=== PATIENT | male | born 1945 | race Hispanic/Latino ===

== ENCOUNTER 2017-06-09 01:43 | Emergency (ER) | payer MEDICARE ==
--- NOTE | 2017-06-09 02:13 | C.PDOC ---
History Of Present Illness 72 y/o male presents to the ED for evaluation because he is concerned about "damaged what they did for me" yesterday. Patient has history of incontinence and states he may have self urinated on dressings again. Patient reports no new symptoms since his ER evaluation at [facility]. Patient has not yet filled his Rx for Augmentin. PS CONCERNED "DAMAGED WHAT THEY DID FOR ME" YESTERDAY. HO INCONTINENCE, STATES MAY HAVE SELF URINATED ON DRESSINGS AGAIN. NO NEW SX SINCE ER EVAL @ [facility]. HAS NOT FILLED AUGMENTIN RX. SP SALINE AND bacitracin applied to the dorsum of the feet and betadine applied to the interspace - Dressed using DSD SOLO bandage Patient placed in a surgical shoe Patient educated to keep the dressing dry, and clean Patient to be given a dose of Vanc/Zosyn while in the ED EXAM NAD EXT +DRESSINGS INTACT B/L FEET. SKIN DRESSINGS CHANGES, ADVISED FU PODIATRY Chief Complaint (Nursing): Lower Extremity Problem/Injury History Per: Patient History/Exam Limitations: no limitations Onset/Duration Of Symptoms: Hrs Current Symptoms Are (Timing): Still Present Reports Recently: Seen In ED, Treated By A Physician Additional History Per: Patient Past Medical History Reviewed: Historical Data, Nursing Documentation, Vital Signs Vital Signs: Last Vital Signs Temp 97.5 F L 06/09/17 01:56 Pulse 78 06/09/17 01:56 Resp 20 06/09/17 01:56 BP 154/82 H 06/09/17 01:56 Pulse Ox 98 06/09/17 02:31 - Medical History PMH: COPD Surgical History: No Surg Hx Family History: States: Unknown Family Hx - Social History Hx Alcohol Use: No Hx Substance Use: No Review Of Systems Skin: Positive for: Other (dressing change - b/l feet ) Physical Exam - Physical Exam Appears: Non-toxic, No Acute Distress Skin: Normal Color, Warm, Dry Head: Atraumatic, Normacephalic Eye(s): bilateral: Normal Inspection Oral Mucosa: Moist Neck: Supple Chest: Symmetrical Cardiovascular: Rhythm Regular Respiratory: Normal Breath Sounds Extremity: Normal ROM, Capillary Refill (less than 2 seconds), Other (dressings intact to b/l feet ) Neurological/Psych: Normal Speech, Normal Cognition ED Course And Treatment O2 Sat by Pulse Oximetry: 98 (on RA) Pulse Ox Interpretation: Normal Progress Note: Patient received Augmentin PO. Progress - Data Reviewed Data Reviewed: Old records Disposition Counseled Patient/Family Regarding: Diagnosis, Need For Followup - Disposition Referrals: [facility] [Outside] [facility] [Outside] Podiatry Clinic [Outside] Disposition: HOME/ ROUTINE Disposition Time: 02:12 Condition: IMPROVED Additional Instructions: TAKE ANTIBIOTICS PRESCRIBED. WOUND CARE PREVIOUSLY ADVISED. Instructions: Cellulitis (ED) Forms: [employer] (Bahamian) - Clinical Impression Clinical Impression: Dressing change - Scribe Statement The provider has reviewed the documentation as recorded by the Scribe (Lyndsay Jacques) Provider Attestation: All medical record entries made by the Scribe were at my direction and personally dictated by me. I have reviewed the chart and agree that the record accurately reflects my personal performance of the history, physical exam, medical decision making, and the department course for this patient. I have also personally directed, reviewed, and agree with the discharge instructions and disposition.
[2017-06-09] MEDS ORDERED: Amoxicillin-Clav 875-125 mg Tab PO STA (02:14)
[2017-06-09] MEDS ORDERED: Amoxicillin-Clav 875-125 mg Tab PO ONE (02:26)
[2017-06-09 02:44] VITALS: BP 138/69; PULSE 75; RESP 16; TEMP 97.7; O2SAT 97
== END 2017-06-09 02:43 | disposition home or self-care (01) ==
LOC: C.ER 01:43
DX: Z48.00 Encounter for change or removal of nonsurgical wound dressing (principal)

== ENCOUNTER 2017-06-12 14:53 | Emergency (ER) | payer MEDICARE ==
[2017-06-12 15:49] VITALS: O2SAT 96
[2017-06-12] MEDS ORDERED: Bacitracin 500 Units/gm Oint Foilpak UD TOP ONE (16:48)
[2017-06-12] MEDS ORDERED: Bacitracin 500 Units/gm Oint Foilpak UD ONE (16:51)
--- NOTE | 2017-06-12 17:02 | C.PDOC ---
History Of Present Illness 72 year old male, with history of homelessness, is brought to the ED via EMS for evaluation after he was found on the street [employer]. As per EMS, patient has urinated upon himself. Patient states he was seen at [facility] several days ago and had a dressing applied to his legs. On my assessment, patient is asking for food and a place to sleep. Patient denies any complaints at this time. Time Seen by Provider: 06/12/17 16:37 Chief Complaint (Nursing): Medical Clearance History Per: Patient, EMS History/Exam Limitations: no limitations Current Symptoms Are (Timing): Gone Additional History Per: Patient, EMS Past Medical History Reviewed: Historical Data, Nursing Documentation, Vital Signs Vital Signs: Last Vital Signs Temp 97.9 F 06/12/17 17:54 Pulse 72 06/12/17 17:54 Resp 20 06/12/17 17:54 BP 144/77 06/12/17 17:54 Pulse Ox 96 06/12/17 17:54 - Medical History PMH: COPD Surgical History: No Surg Hx Family History: States: Unknown Family Hx - Social History Hx Alcohol Use: No Hx Substance Use: No Review Of Systems Constitutional: Negative for: Fever, Chills Physical Exam - Physical Exam Appears: Non-toxic, No Acute Distress Skin: Warm, Dry, Other (no open lesions noted, interdigital maceration noted in all interspaces, nails are elongated and dystrophic on all digits, erythema to the dorsum of the foot bilaterally extending distal to the ankle joint) Head: Atraumatic, Normacephalic Eye(s): bilateral: Normal Inspection Oral Mucosa: Moist Neck: Supple Extremity: Capillary Refill (less than 2 seconds ), Other (no pain or tenderness on palpation of the dorum of the feet, no pain on active or passive ROM of the b/l feet at the ankle joint) Neurological/Psych: Other (protective sensation grossly intact) ED Course And Treatment O2 Sat by Pulse Oximetry: 96 (on RA) Pulse Ox Interpretation: Normal Medical Decision Making Medical Decision Making: Progress: dressings taken down, chronic appearing wounds, wounds were redressed. Bacitracin TOP applied to affected areas. Patient tolerated well. Disposition - Disposition Referrals: [facility] [Outside] [facility] [Outside] [facility]] Santy Felix DPM [Staff Provider] - Disposition: HOME/ ROUTINE Disposition Time: 05:00 Condition: STABLE Additional Instructions: please follow up with your doctor. return to er with worsening symptoms or concerns. please see specialist/clinic. Instructions: Chronic Wound Care (ED) Forms: [employer] (Romansh) - Clinical Impression Clinical Impression: Medical assessment, Dressing change - Scribe Statement The provider has reviewed the documentation as recorded by the Scribe (Lyndsay Jacques) Provider Attestation: All medical record entries made by the Scribe were at my direction and personally dictated by me. I have reviewed the chart and agree that the record accurately reflects my personal performance of the history, physical exam, medical decision making, and the department course for this patient. I have also personally directed, reviewed, and agree with the discharge instructions and disposition.
[2017-06-12 17:55] VITALS: BP 144/77; PULSE 72; RESP 20; TEMP 97.9
== END 2017-06-12 18:10 | disposition home or self-care (01) ==
LOC: C.ER 14:53
DX: Z48.00 Encounter for change or removal of nonsurgical wound dressing (principal)

== ENCOUNTER 2017-06-13 03:42 | Inpatient (IN) | payer MEDICARE ==
[2017-06-13 05:36] LABS: BASO % 0.5 % (0.0-2.0); EOS # 0.3 K/uL (0.0-0.7); EOS % 4.4 % (0.0-4.0); HEMATOCRIT 34.1 % (35.0-51.0); LYMPH # 2.4 K/uL (1.0-4.3); LYMPH % 32.7 % (20.0-40.0); MEAN CELL VOLUME 85.7 fL (80.0-94.0); MEAN CORPUSCULAR HEMOGLOBIN 29.8 pg (27.0-31.0); MEAN CORPUSCULAR HGB CONC 34.8 g/dL (33.0-37.0); MEAN PLATELET VOLUME 6.8 fL (7.2-11.7); MONO # 0.7 K/uL (0.0-0.8); MONO % 9.5 % (0.0-10.0); RED CELL DISTRIBUTION WIDTH 13.7 % (11.5-14.5); WHITE BLOOD COUNT 7.2 K/uL (4.8-10.8)
--- NOTE | 2017-06-13 05:41 | C.PDOC ---
History Of Present Illness 72 year old male presents to the ED 4 day history of cough which is associated with subjective fevers and bodyaches. The patient reports that over the past 2 days have worsened and he is now feeling weakness. The patient reports history of homelessness and is seeking information regarding [facility] alternatives. Denies numbness, chest pain, SOB, back pain, rash, travel, suicidal, or homicidal ideations. Time Seen by Provider: 06/13/17 04:09 Chief Complaint (Nursing): Flu-like Symptoms History Per: Patient History/Exam Limitations: no limitations Onset/Duration Of Symptoms: Persistent Current Symptoms Are (Timing): Worse Location Of Pain: None Sick Contacts (Context): None Associated Symptoms: denies: Fever, Chills, Sore Throat, Cough, Vomiting, Diarrhea Severity: Moderate Recent travel outside of the [place]: No Past Medical History Reviewed: Historical Data, Nursing Documentation, Vital Signs Vital Signs: Last Vital Signs Temp 98.5 F 06/13/17 03:59 Pulse 80 06/13/17 03:59 Resp 16 06/13/17 03:59 BP 155/71 H 06/13/17 03:59 Pulse Ox 98 06/13/17 06:05 - Medical History PMH: COPD Family History: States: Unknown Family Hx - Social History Hx Alcohol Use: No Hx Substance Use: No Review Of Systems Except As Marked, All Systems Reviewed And Found Negative. Constitutional: Negative for: Fever, Chills Cardiovascular: Negative for: Chest Pain, Palpitations Respiratory: Negative for: Cough, Shortness of Breath Gastrointestinal: Negative for: Nausea, Vomiting, Abdominal Pain, Diarrhea Neurological: Negative for: Headache Physical Exam - Physical Exam Appears: Non-toxic, No Acute Distress Skin: Warm, Dry, No Rash Head: Atraumatic, Normacephalic Eye(s): bilateral: Normal Inspection, PERRL, EOMI Ear(s): Bilateral: Normal Oral Mucosa: Moist Neck: Normal ROM, Supple Chest: Symmetrical, No Deformity Cardiovascular: Rhythm Regular, No Friction Rub, No Murmur Respiratory: Normal Breath Sounds, No Rales, No Rhonchi, No Wheezing Gastrointestinal/Abdominal: Soft, No Tenderness, No Distention, No Guarding, No Rebound Extremity: Normal ROM, No Tenderness, No Swelling Neurological/Psych: Oriented x3, Normal Speech, Normal Motor Gait: Steady ED Course And Treatment - Laboratory Results Result Diagrams: 06/13/17 05:30 06/13/17 05:30 ECG: Interpreted By Me, Viewed By Me ECG Rhythm: Sinus Bradycardia Rate From EC O2 Sat by Pulse Oximetry: 98 (room air ) - Radiology CXR: Interpreted by Me, Viewed By Me CXR Interpretation: Yes: Infiltrates Progress Note: EKG, CXR, and labs were ordered. Medical Decision Making Medical Decision Making: The case was discussed with Dr. Qureshi who agrees to admit the patient to his service. Potassium was found to be low, potassium given. Disposition - Disposition Disposition: HOSPITALIZED Disposition Time: 06:27 Condition: FAIR Forms: [employer] (Czech) - POA Present On Arrival: None - Clinical Impression Clinical Impression: Hypokalemia, Pneumonia - PA / FOOD PORTER / Resident Statement MD/DO has reviewed & agrees with the documentation as recorded. - Scribe Statement The provider has reviewed the documentation as recorded by the Scribe Elaine Neal All medical record entries made by the Scribe were at my direction and personally dictated by me. I have reviewed the chart and agree that the record accurately reflects my personal performance of the history, physical exam, medical decision making, and the department course for this patient. I have also personally directed, reviewed, and agree with the discharge instructions and disposition.
[2017-06-13 05:42] LABS: URINE BACTERIA RARE (<OCC); URINE BILIRUBIN NEGATIVE (NEGATIVE); URINE BLOOD NEGATIVE (NEGATIVE); URINE COLOR Yellow (YELLOW); URINE GLUCOSE (UA) 1+ mg/dL (Normal); URINE KETONE NEGATIVE (NEGATIVE); URINE LEUKOCYTE ESTERASE NEG Leu/uL (Negative); URINE PROTEIN 1+ mg/dL (NEGATIVE); WBC URINE 1 /hpf (0-5)
[2017-06-13 05:45] LABS: CHLORIDE 102 mmol/L (98-107); POTASSIUM 3.1 mmol/L (3.6-5.2); SODIUM 142 mmol/L (132-148)
[2017-06-13 05:47] LABS: ALKALINE PHOSPHATASE 55 U/L (38-126); AST/SGOT 17 U/L (17-59); BILIRUBIN,TOTAL 0.6 mg/dL (0.2-1.3); CARBON DIOXIDE 27 mmol/L (22-30); GFR AFRICAN-AMERICAN > 60; TOTAL PROTEIN 6.4 g/dL (6.3-8.3)
[2017-06-13 05:48] LABS: ALT/SGPT 24 U/L (21-72); BLOOD UREA NITROGEN 7 mg/dL (9-20); CALCIUM 8.8 mg/dl (8.6-10.4); GLUCOSE,RANDOM 204 mg/dL (75-110)
[2017-06-13] MEDS ORDERED: cefTRIAXone IV 1 gm in Dextros 50 ML IVPB ONE (06:24)
[2017-06-13] MEDS ORDERED: cefTRIAXone IV 1 gm in Dextros 1 GM in Dextrose 5% In Water 50 ML IVPB SCH (06:30)
--- NOTE | 2017-06-13 08:08 | RAD ---
HISTORY: cough, fever, r/o infiltrate COMPARISON: No prior. FINDINGS: LUNGS: Left basal opacity consistent with combine left pleural effusion of basal consolidation and minimally elevated left hemidiaphragm are inferred. Shallow lung volumes PLEURA: Left pleural effusion. No pneumothorax CARDIOVASCULAR: Mild cardiomegaly - crowding of the central pulmonary vasculature OSSEOUS STRUCTURES: Acromioclavicular joint arthrosis VISUALIZED UPPER ABDOMEN: Normal. OTHER FINDINGS: None. IMPRESSION: Left basal consolidation with with atelectasis. Left pleural effusion shallow lung volumes Mild cardiomegaly
[2017-06-13 08:51] VITALS: RESP 20
[2017-06-13] MEDS: Albuterol-Ipratrop 3 mg / 0.5 (3 ml) UD INH SCH ×4 (09:05→19:28)
--- NOTE | 2017-06-13 10:40 | CP.PCM.PN ---
Subjective - Date & Time of Evaluation Date of Evaluation: 06/13/17 Time of Evaluation: 11:00 - Subjective Subjective: Dr. Qureshi progress note: Patient is seen in room. He reports being homeless and having fever and chills prior to admission to the hospital. He says that he was also coughing as well. He denies having any chest pain but that he has been to [facility] before. Objective - Vital Signs/Intake and Output Vital Signs (last 24 hours): Temp Pulse Resp BP Pulse Ox 97.4 F L 68 20 178/76 H 97 06/13/17 08:49 06/13/17 09:06 06/13/17 08:49 06/13/17 08:49 06/13/17 08:49 - Medications Medications: Current Medications Acetaminophen (Tylenol 325mg Tab) 650 mg PO Q4 ANTWAN Albuterol/Ipratropium (Duoneb 3 Mg/0.5 Mg (3 Ml) Ud) 3 ml INH RQ4 ANTWAN Last Admin: 06/13/17 09:05 Dose: 3 ml Enoxaparin Sodium (Lovenox) 40 mg SC DAILY ANTWAN Azithromycin (Zithromax 500mg In Ns Addvantage) 500 mg in 250 mls @ 167 mls/hr IVPB Q24H ANTWAN Ceftriaxone Sodium (Rocephin Iv 1 Gm Duplex) 50 mls @ 50 mls/30 min IVPB Q12H ANTWAN - Labs Labs: 06/13/17 05:30 06/13/17 05:30 - Constitutional Appears: Non-toxic, No Acute Distress - Eye Exam Eye Exam: Normal appearance - Respiratory Exam Respiratory Exam: Decreased Breath Sounds, Rales, Rhonchi. absent: Clear to Ausculation Bilateral, Wheezes - Cardiovascular Exam Cardiovascular Exam: REGULAR RHYTHM, RRR, +S1, +S2. absent: Gallop, Rubs - GI/Abdominal Exam GI & Abdominal Exam: Soft, Normal Bowel Sounds. absent: Tenderness - Extremities Exam Extremities Exam: Normal Inspection. absent: Pedal Edema - Psychiatric Exam Psychiatric exam: Normal Affect, Normal Mood - Skin Skin Exam: Normal Color Additional comments: weeping sores on both lower extremities. Assessment and Plan (1) Pneumonia Assessment & Plan: Patient is on Zithromax 500mg IVPB. Rocephin 1 gram Q12H day 1. Duoneb q6H. Status: Acute (2) Hypokalemia Assessment & Plan: K is 3.1, gave 40 meq of potassium. follow up am cmp Status: Acute (3) Cellulitis of both feet Assessment & Plan: Podiatry consult Dr. Gibson, follow up on reccs. Status: Acute (4) Prophylactic measure Assessment & Plan: Lovenox and pepcid Status: Acute
[2017-06-13] MEDS ORDERED: Potassium Chloride 20 mEq ER Tab PO STA (10:58)
[2017-06-13] MEDS: Azithromycin 500mg/250ML NS 500 MG/250 ML BAG IVPB SCH (11:13)
[2017-06-13] MEDS: Enoxaparin 40 mg Syringe SC SCH (11:14)
[2017-06-13] MEDS: cefTRIAXone IV 1 gm in Dextros 50 ML IVPB SCH (19:00)
--- NOTE | 2017-06-13 19:28 | CP.PCM.PN ---
Subjective - Date & Time of Evaluation Date of Evaluation: 06/14/17 Time of Evaluation: 20:00 - Subjective Subjective: 72 year old male with PMH of HTN and anxiety consulted for multiple lesions of bilaterally lower extremity. Patient is resting comfortably in bed in NAD and AA0x3. Patient states the wounds on his legs started 4 weeks ago. He reports being homeless and recently evicted. He reports having cough, fevers, and bodyaches that comes and goes. Reports tenderness to the legs but no pain. Denies cp, chills, fever, nausea, and vomiting at the time of the visit. Allergies: NKDA PSH: none FH: noncontributory SH: former smoker 20 year 3 pack a day; former alcohol abuse, former marijuana, and former cocaine user Objective - Vital Signs/Intake and Output Vital Signs (last 24 hours): Temp Pulse Resp BP Pulse Ox 98 F 81 20 174/85 H 96 06/13/17 15:05 06/13/17 17:02 06/13/17 15:05 06/13/17 17:02 06/13/17 17:02 Intake and Output: 06/13/17 06/14/17 18:59 06:59 Output Total 400 Balance -400 - Medications Medications: Current Medications Acetaminophen (Tylenol 325mg Tab) 650 mg PO Q4 PRN PRN Reason: Fever >100.4 F Albuterol/Ipratropium (Duoneb 3 Mg/0.5 Mg (3 Ml) Ud) 3 ml INH RQ4 [facility] Last Admin: 06/13/17 16:14 Dose: Not Given Enoxaparin Sodium (Lovenox) 40 mg SC DAILY [facility] Last Admin: 06/13/17 11:14 Dose: 40 mg Famotidine (Pepcid) 20 mg PO DAILY [facility] Azithromycin (Zithromax 500mg In Ns Addvantage) 500 mg in 250 mls @ 167 mls/hr IVPB Q24H [facility] Last Admin: 06/13/17 11:13 Dose: 167 mls/hr Ceftriaxone Sodium (Rocephin Iv 1 Gm Duplex) 50 mls @ 50 mls/30 min IVPB Q12H [facility] Influenza Virus Vaccine (Afluria) 45 mcg IM .ONCE ONE Stop: 06/15/17 10:01 Pneumococcal Polyvalent Vaccine (Pneumovax 23 Vaccine) 0.5 ml IM .ONCE ONE Stop: 06/15/17 10:01 - Labs Labs: 06/13/17 05:30 06/13/17 05:30 - Constitutional Appears: Well, Non-toxic, No Acute Distress - Extremities Exam Additional comments: Vasc: DP and PT 1/4 bilaterally, temperature warm to warm from proximal to distal, CFT <3 seconds x10 digits, hair growth appreciated Ortho: tenderness noted to the entire lower extremity where lesions are present , MM is 5/5 in all four compartments in dorsiflexion, plantarflexion, inversion , and eversion Neuro: gross sensation intact bilaterally Derm: superficial distal ulceration noted to the left hallux measuring approximately .5 x.5 x .1 cm, no drainage, no purulence, no increase warmth, no tunneling, not undermining noted. Multiple lesions noted to the entire lower extremity red in nature with scaly borders. xerosis noted to the entire lower extremity, no active drainage noted to the lesions, slight maceration noted to the interdigitals x10 with no skin breakage noted - Neurological Exam Neurological Exam: Alert, Awake, Oriented x3 - Psychiatric Exam Psychiatric exam: Normal Affect, Normal Mood Assessment and Plan - Assessment and Plan (Free Text) Assessment: 72 year old male with PMH of HTN anxiety consulted for multiple lesions to LE consistent with bug bites and left distal hallux superficial ulceration secondary to pressure Plan: Patient was examined and evaluated at bedside Vitals, labs, charts reviewed (WBC=7.2) Discussed plan in detail with attending Dr. Gibson Entire lower extremity was cleansed with wound cleanser, copious amount of saline solution flushed over entire LE and hyperkeratotic, scaly tissue removed mechanically using 4x4 gauze, betadine was used to cleansed to the interspaces and distal hallux ulceraion. Ulceration was dressed with betadine w2d, cling, and SOLO. Kerlix applied to right LE with SOLO. Continue Abx Ancef Will continue to follow while in house
[2017-06-14] MEDS: Albuterol-Ipratrop 3 mg / 0.5 (3 ml) UD INH SCH ×4 (00:55→11:28)
[2017-06-14] MEDS: cefTRIAXone IV 1 gm in Dextros 50 ML IVPB SCH ×2 (06:15→19:37)
[2017-06-14 07:26] LABS: BASO % 0.2 % (0.0-2.0); EOS # 0.3 K/uL (0.0-0.7); EOS % 3.3 % (0.0-4.0); HEMATOCRIT 33.3 % (35.0-51.0); LYMPH # 1.8 K/uL (1.0-4.3); LYMPH % 21.6 % (20.0-40.0); MEAN CELL VOLUME 85.6 fL (80.0-94.0); MEAN CORPUSCULAR HEMOGLOBIN 29.5 pg (27.0-31.0); MEAN CORPUSCULAR HGB CONC 34.5 g/dL (33.0-37.0); MEAN PLATELET VOLUME 7.1 fL (7.2-11.7); MONO # 0.8 K/uL (0.0-0.8); MONO % 9.2 % (0.0-10.0); RED CELL DISTRIBUTION WIDTH 13.6 % (11.5-14.5); WHITE BLOOD COUNT 8.5 K/uL (4.8-10.8)
--- NOTE | 2017-06-14 07:32 | CP.PCM.PN ---
Subjective - Date & Time of Evaluation Date of Evaluation: 06/14/17 Time of Evaluation: 11:00 - Subjective Subjective: Dr. Qureshi note: Patient is seen and examined in room. Patient reports he is still coughing but is feeling better since admission. He is afraid to be discharged because he is weak and homeless. Patient has sores on his legs that he says have there for a long time and they are not pruritic Objective - Vital Signs/Intake and Output Vital Signs (last 24 hours): Temp Pulse Resp BP Pulse Ox 98.2 F 93 H 20 185/76 H 95 06/13/17 23:30 06/13/17 23:30 06/13/17 23:30 06/13/17 23:30 06/13/17 23:30 Intake and Output: 06/14/17 06/14/17 06:59 18:59 Intake Total 250 Output Total 350 Balance -100 - Medications Medications: Current Medications Acetaminophen (Tylenol 325mg Tab) 650 mg PO Q4 PRN PRN Reason: Fever >100.4 F Albuterol/Ipratropium (Duoneb 3 Mg/0.5 Mg (3 Ml) Ud) 3 ml INH RQ4 ANTWAN Last Admin: 06/14/17 03:52 Dose: Not Given Enoxaparin Sodium (Lovenox) 40 mg SC DAILY ANTWAN Last Admin: 06/13/17 11:14 Dose: 40 mg Famotidine (Pepcid) 20 mg PO DAILY ANTWAN Azithromycin (Zithromax 500mg In Ns Addvantage) 500 mg in 250 mls @ 167 mls/hr IVPB Q24H ANTWAN Last Admin: 06/13/17 11:13 Dose: 167 mls/hr Ceftriaxone Sodium (Rocephin Iv 1 Gm Duplex) 50 mls @ 50 mls/30 min IVPB Q12H ANTWAN Last Admin: 06/14/17 06:15 Dose: 50 mls/30 min Influenza Virus Vaccine (Afluria) 45 mcg IM .ONCE ONE Stop: 06/15/17 10:01 Pneumococcal Polyvalent Vaccine (Pneumovax 23 Vaccine) 0.5 ml IM .ONCE ONE Stop: 06/15/17 10:01 - Labs Labs: 06/14/17 07:15 06/13/17 05:30 - Constitutional Appears: Non-toxic, No Acute Distress - Eye Exam Eye Exam: Normal appearance - Respiratory Exam Respiratory Exam: Clear to Ausculation Bilateral. absent: Rales, Rhonchi, Wheezes - Cardiovascular Exam Cardiovascular Exam: REGULAR RHYTHM, RRR, +S1, +S2. absent: Gallop, Rubs - GI/Abdominal Exam GI & Abdominal Exam: Soft, Normal Bowel Sounds. absent: Tenderness - Extremities Exam Extremities Exam: Normal Inspection - Back Exam Back Exam: NORMAL INSPECTION - Psychiatric Exam Psychiatric exam: Normal Affect, Normal Mood - Skin Additional comments: multiple scabs on his legs, skin is very dry and flaky, dressing on both feet. Assessment and Plan - Assessment and Plan (Free Text) Assessment: (1) Pneumonia Assessment & Plan: 06/15: Day 2 of IV Rocephin and Day 3 of Zithromax IV, also continue Duoneb treatment. Rocephin and Zithromax with Duoneb Patient is on Zithromax 500mg IVPB. Rocephin 1 gram Q12H day 1. Duoneb q6H. Status: Acute (2) Hypokalemia Assessment & Plan: 06/14: K is today 3.5, gave 20meq of KDUR K is 3.1, gave 40 meq of potassium. follow up am cmp Status: Acute (3) Cellulitis of both feet Assessment & Plan: 06/14: Wound care and podiatry, will continue with IV antibiotics and also physical therapy. Most likely discharge in the morning. Status: Acute (4) Prophylactic measure Assessment & Plan: Lovenox and pepcid Status: Acute
[2017-06-14 07:38] LABS: CHLORIDE 103 mmol/L (98-107); POTASSIUM 3.5 mmol/L (3.6-5.2); SODIUM 142 mmol/L (132-148)
[2017-06-14 07:40] LABS: AST/SGOT 19 U/L (17-59); BILIRUBIN,TOTAL 0.8 mg/dL (0.2-1.3); CARBON DIOXIDE 26 mmol/L (22-30); GFR AFRICAN-AMERICAN > 60
[2017-06-14 07:41] LABS: ALKALINE PHOSPHATASE 52 U/L (38-126); ALT/SGPT 25 U/L (21-72); BLOOD UREA NITROGEN 5 mg/dL (9-20); CALCIUM 8.5 mg/dl (8.6-10.4); GLUCOSE,RANDOM 132 mg/dL (75-110); MAGNESIUM 1.6 mg/dL (1.6-2.3); PHOSPHOROUS 2.7 mg/dL (2.5-4.5); TOTAL PROTEIN 6.3 g/dL (6.3-8.3)
[2017-06-14] MEDS: Azithromycin 500mg/250ML NS 500 MG/250 ML BAG IVPB SCH (08:38)
[2017-06-14] MEDS ORDERED: Potassium Chloride 20 mEq ER Tab PO STA (09:23)
--- NOTE | 2017-06-14 09:57 | HP ---
HISTORY OF PRESENT ILLNESS: The patient is a 72-year-old male, admitted to the hospital with leg pain, swelling. The patient ____ CAT scan, advised admission. The patient is nonsmoker, nondrinker. The patient ____ . PHYSICAL EXAMINATION: GENERAL: The patient is awake, alert, and oriented. VITAL SIGNS: Temperature 98 and pulse 90. HEENT: Within normal limits. NECK: Supple. CHEST: Symmetrical. HEART: Regular. ABDOMEN: Soft. EXTREMITIES: No edema. PLAN: The patient with colon mass. The patient will have colonoscopy. Supportive care. Reynold Qureshi MD
--- NOTE | 2017-06-14 10:03 | HP ---
HISTORY OF PRESENT ILLNESS: A 72-year-old male admitted to the hospital with complaint of cough, shortness of breath ____. PAST MEDICAL HISTORY: ____ juvenile 20 years ago, he's been reform since. SOCIAL HISTORY: The patient does not smoke or drink. PHYSICAL EXAMINATION GENERAL: The patient is awake, alert, and oriented. VITAL SIGNS: Temperature 98, pulse 90. HEENT: Within normal limits. NECK: Supple. CHEST: Symmetrical. HEART: Regular. ABDOMEN: Soft. EXTREMITIES: No edema. IMPRESSION: The patient has pneumonia . The patient on bed rest, supportive care and antibiotics. Reynold Qureshi MD
[2017-06-14] MEDS: Enoxaparin 40 mg Syringe SC SCH (10:05)
--- NOTE | 2017-06-14 14:21 | CP.PCM.PN ---
Subjective - Date & Time of Evaluation Date of Evaluation: 06/14/17 Time of Evaluation: 12:00 - Subjective Subjective: Podiatry Progress Note --Dr. Felix: 72 year old male pt seen at bedside today for b/l LE ulcerations/cellulitis. Pt is seen resting comfortably in bed at time of visit. Denies f/n/v/c/cob/cp/ weakness or dizziness at this time. Denies any pain/discomfort to his legs today. Objective - Vital Signs/Intake and Output Vital Signs (last 24 hours): Temp Pulse Resp BP Pulse Ox 98.1 F 70 20 150/71 95 06/14/17 08:09 06/14/17 08:09 06/14/17 08:09 06/14/17 08:09 06/14/17 08:09 Intake and Output: 06/14/17 06/14/17 06:59 18:59 Intake Total 250 Output Total 350 Balance -100 - Medications Medications: Current Medications Acetaminophen (Tylenol 325mg Tab) 650 mg PO Q4 PRN PRN Reason: Fever >100.4 F Albuterol/Ipratropium (Duoneb 3 Mg/0.5 Mg (3 Ml) Ud) 3 ml INH RQ4 [facility] Last Admin: 06/14/17 11:28 Dose: 3 ml Enoxaparin Sodium (Lovenox) 40 mg SC DAILY [facility] Last Admin: 06/14/17 10:05 Dose: 40 mg Famotidine (Pepcid) 20 mg PO DAILY [facility] Last Admin: 06/14/17 10:05 Dose: 20 mg Azithromycin (Zithromax 500mg In Ns Addvantage) 500 mg in 250 mls @ 167 mls/hr IVPB Q24H [facility] Last Admin: 06/14/17 08:38 Dose: 167 mls/hr Ceftriaxone Sodium (Rocephin Iv 1 Gm Duplex) 50 mls @ 50 mls/30 min IVPB Q12H [facility] Last Admin: 06/14/17 06:15 Dose: 50 mls/30 min Influenza Virus Vaccine (Afluria) 45 mcg IM .ONCE ONE Stop: 06/15/17 10:01 Pneumococcal Polyvalent Vaccine (Pneumovax 23 Vaccine) 0.5 ml IM .ONCE ONE Stop: 06/15/17 10:01 - Labs Labs: 06/14/17 07:15 06/14/17 07:15 - Constitutional Appears: Non-toxic, No Acute Distress - Extremities Exam Extremities Exam: absent: Calf Tenderness Additional comments: Bilateral LE exam: Dressings appear c/d/i BL Vasc: DP and PT 1/4 BL, skin temp runs warm to warm bl, CFT <3 seconds x10 digit , moderate 2+ pitting edema noted to BL Neuro: gross sensation intact bilaterally Derm: superficial distal ulceration noted to the left hallux measuring approximately 0.5 x0.5 x 0.1 cm, no drainage, no purulence, no increase warmth, no tunneling, not undermining noted. Multiple lesions noted to the entire lower extremity red in nature with scaly borders. xerosis noted to the entire lower extremity, no active drainage noted to the lesions, slight maceration noted to the interdigitals x10 with no skin breakage noted Ortho: tenderness noted to the entire lower extremity where lesions are present , MMT is 5/5 in all four compartments in dorsiflexion, plantarflexion, inversion , and eversion - Neurological Exam Neurological Exam: Alert, Awake, Oriented x3 - Psychiatric Exam Psychiatric exam: Normal Affect, Normal Mood Assessment and Plan - Assessment and Plan (Free Text) Assessment: 72 year old male pt with ulceration/cellulitis to bilateral LE Plan: Pt S&E at bedside Plan discussed with attending Dr. Gibson in detail Vitals, labs, charts reviewed: afebrile, no leukocytosis BL lower ext cleansed with saline and dressed with betadine/DSD and SOLO bandages Blood cx: no growth after 24 h c/w IV abx as per ID Stable, will follow
[2017-06-15] MEDS: Albuterol-Ipratrop 3 mg / 0.5 (3 ml) UD INH SCH ×6 (01:15→20:12)
[2017-06-15] MEDS: cefTRIAXone IV 1 gm in Dextros 50 ML IVPB SCH ×2 (06:10→18:26)
[2017-06-15 06:37] LABS: BASO % 0.3 % (0.0-2.0); EOS # 0.2 K/uL (0.0-0.7); HEMATOCRIT 33.1 % (35.0-51.0); LYMPH % 23.8 % (20.0-40.0); MEAN CELL VOLUME 84.9 fL (80.0-94.0); MEAN CORPUSCULAR HEMOGLOBIN 29.2 pg (27.0-31.0); MEAN CORPUSCULAR HGB CONC 34.4 g/dL (33.0-37.0); MEAN PLATELET VOLUME 6.9 fL (7.2-11.7); MONO # 0.9 K/uL (0.0-0.8); MONO % 10.5 % (0.0-10.0); RED CELL DISTRIBUTION WIDTH 13.4 % (11.5-14.5); WHITE BLOOD COUNT 8.3 K/uL (4.8-10.8)
[2017-06-15 07:03] LABS: ALB/GLOB RATIO 1.1 (1.0-2.1); ALKALINE PHOSPHATASE 53 U/L (38-126); ALT/SGPT 24 U/L (21-72); AST/SGOT 17 U/L (17-59); BILIRUBIN,TOTAL 0.9 mg/dL (0.2-1.3); BLOOD UREA NITROGEN 8 mg/dL (9-20); CALCIUM 8.8 mg/dl (8.6-10.4); CARBON DIOXIDE 25 mmol/L (22-30); CHLORIDE 102 mmol/L (98-107); GFR AFRICAN-AMERICAN > 60; GLUCOSE,RANDOM 162 mg/dL (75-110); POTASSIUM 3.7 mmol/L (3.6-5.2); SODIUM 138 mmol/L (132-148); TOTAL PROTEIN 6.1 g/dL (6.3-8.3)
[2017-06-15] MEDS: Azithromycin 500mg/250ML NS 500 MG/250 ML BAG IVPB SCH (08:19)
--- NOTE | 2017-06-15 09:26 | CP.PCM.PN ---
Subjective - Date & Time of Evaluation Date of Evaluation: 06/15/17 Time of Evaluation: 09:23 - Subjective Subjective: Pt seen and examined at bedside this AM; he has no complaints other than if he' s possibly discharged he has no where to go since he is homeless. Patient denies fevers/chills, RUSSELL, CP, SOB, abdominal pain, N/V/D, dysuria/freq/urg or lower extremity swelling or pain. Objective - Vital Signs/Intake and Output Vital Signs (last 24 hours): Temp Pulse Resp BP Pulse Ox 98.3 F 81 20 166/75 H 97 06/15/17 08:13 06/15/17 08:13 06/15/17 08:13 06/15/17 08:13 06/15/17 08:13 Intake and Output: 06/15/17 06/15/17 06:59 18:59 Intake Total 850 Output Total 1150 Balance -300 - Medications Medications: Current Medications Acetaminophen (Tylenol 325mg Tab) 650 mg PO Q4 PRN PRN Reason: Fever >100.4 F Albuterol/Ipratropium (Duoneb 3 Mg/0.5 Mg (3 Ml) Ud) 3 ml INH RQ4 [facility] Last Admin: 06/15/17 07:39 Dose: Not Given Enoxaparin Sodium (Lovenox) 40 mg SC DAILY [facility] Last Admin: 06/14/17 10:05 Dose: 40 mg Famotidine (Pepcid) 20 mg PO DAILY [facility] Last Admin: 06/14/17 10:05 Dose: 20 mg Hydrochlorothiazide (Microzide) 12.5 mg PO DAILY [facility] Azithromycin (Zithromax 500mg In Ns Addvantage) 500 mg in 250 mls @ 167 mls/hr IVPB Q24H [facility] Last Admin: 06/15/17 08:19 Dose: 167 mls/hr Ceftriaxone Sodium (Rocephin Iv 1 Gm Duplex) 50 mls @ 50 mls/30 min IVPB Q12H [facility] Last Admin: 06/15/17 06:10 Dose: 50 mls/30 min Influenza Virus Vaccine (Afluria) 45 mcg IM .ONCE ONE Stop: 06/15/17 10:01 Insulin Aspart (Novolog) 0 unit SC ACHS [facility] PRN Reason: Protocol Lisinopril (Zestril) 10 mg PO DAILY [facility] Pneumococcal Polyvalent Vaccine (Pneumovax 23 Vaccine) 0.5 ml IM .ONCE ONE Stop: 06/15/17 10:01 - Labs Labs: 06/15/17 06:23 06/15/17 06:23 - Constitutional Appears: Non-toxic - Head Exam Head Exam: ATRAUMATIC - Eye Exam Eye Exam: EOMI - ENT Exam ENT Exam: Mucous Membranes Moist - Neck Exam Neck Exam: Full ROM. absent: Lymphadenopathy - Respiratory Exam Respiratory Exam: Clear to Ausculation Bilateral - Cardiovascular Exam Cardiovascular Exam: REGULAR RHYTHM - GI/Abdominal Exam GI & Abdominal Exam: Soft, Normal Bowel Sounds - Extremities Exam Extremities Exam: absent: Calf Tenderness Additional comments: feet b/l redness; improved from yesterday - Neurological Exam Neurological Exam: Alert, Awake - Psychiatric Exam Psychiatric exam: Normal Affect - Skin Skin Exam: Warm Assessment and Plan - Assessment and Plan (Free Text) Assessment: 72yo homeless male admitted for CAP PNA and Cellulitis of both feet Pneumonia 06/16: Day 3 of IV rocephin and Zithromax; patient has had stable vital signs, is up and out of bed, and eating normally. No fevers, No WBC or uremia. 06/15: Day 2 of IV Rocephin and Day 3 of Zithromax IV, also continue Duoneb treatment. Rocephin and Zithromax Duoneb q6H. Hypokalemia; resolved 06/15: K is 3.7 today 06/14: K is today 3.5, gave 20meq of KDUR Cellulitis of both feet; resolving 06/15: Cellulitis is improving; day 3 of antibiotics 06/14: Wound care and podiatry, will continue with IV antibiotics and also physical therapy. Most likely discharge in the morning. Homelessness -case management will work on getting the patient placed into a retirement -PT is recommending [facility]; pending placement and home O2 Prophylactic measure Lovenox and pepcid Heart Healthy Diet Dr. Trevor Arevalo PGY2 note for Dr. Qureshi
[2017-06-15] MEDS ORDERED: Influenza Virus Vaccine (Afluria Inactive dont use ) IM ONE (10:00)
[2017-06-15] MEDS ORDERED: Pneumococcal 23-Valent Vaccine IM ONE (10:00)
[2017-06-15] MEDS: Enoxaparin 40 mg Syringe SC SCH (11:00)
[2017-06-15] MEDS: (Novolog) Insulin Aspart, Recombinant 100 u/ml 10 ml vial SC SCH ×2 (12:28→18:23)
[2017-06-15 16:44] VITALS: TEMP 97.8
[2017-06-16] MEDS: (Novolog) Insulin Aspart, Recombinant 100 u/ml 10 ml vial SC SCH (00:05)
[2017-06-16 00:11] VITALS: BP 157/66; PULSE 76; O2SAT 97
[2017-06-16] MEDS ORDERED: Azithromycin 500 MG in Sodium Chloride 0.9% 250 ML IVPB SCH (08:00)
== END 2017-06-15 23:55 | disposition home or self-care (01) | DRG 194 ==
LOC: C.ER 03:42 → C.9E 06:14 → C.3T 06:41
PROVIDERS: ADMIT Internal Medicine Pulmonary Disease; ATTEND Internal Medicine Pulmonary Disease
DX: J18.9 Pneumonia, unspecified organism (principal); J44.0 Chronic obstructive pulmonary disease with (acute) lower respiratory infection; L03.115 Cellulitis of right lower limb; E11.9 Type 2 diabetes mellitus without complications; L03.116 Cellulitis of left lower limb; E87.6 Hypokalemia; I10 Essential (primary) hypertension; Z59.0 Homelessness; Z87.891 Personal history of nicotine dependence; Z79.4 Long term (current) use of insulin

== ENCOUNTER 2017-08-29 01:09 | Emergency (ER) | payer MEDICARE ==
[2017-08-29 02:09] VITALS: TEMP 99.1; O2SAT 94
--- NOTE | 2017-08-29 03:18 | C.PDOC ---
History Of Present Illness 72 year old male presents to the ER with a complaint of back pain after he fell out of his walker earlier today on the street and landed on his back. Denies weakness, numbness, or incontinence. Patient states he is no longer in pain at this time but is requesting a place to rest for a while. Patient was seen on 08/21/17 for dizziness and admitted from 06/13/17 to for cellulitis of the bilateral feet and community acquired pneumonia. Time Seen by Provider: 08/29/17 01:29 Chief Complaint (Nursing): Back Pain History Per: Patient History/Exam Limitations: no limitations Onset/Duration Of Symptoms: Hrs Current Symptoms Are (Timing): Gone Quality Of Discomfort: Unable To Describe Previous Symptoms: None Associated Symptoms: None Exacerbating Factor(s): Nothing Recent travel outside of the [place]: No Past Medical History Reviewed: Historical Data, Nursing Documentation, Vital Signs Vital Signs: Last Vital Signs Temp 99.1 F 08/29/17 06:05 Pulse 72 08/29/17 06:05 Resp 18 08/29/17 06:05 BP 126/53 L 08/29/17 06:05 Pulse Ox 94 L 08/29/17 06:05 - Medical History PMH: COPD, Diabetes, Rheumatoid Arthritis Surgical History: Tonsillectomy Family History: States: Unknown Family Hx - Social History Hx Alcohol Use: No Hx Substance Use: No - Immunization History Hx Tetanus Toxoid Vaccination: No Hx Influenza Vaccination: No Hx Pneumococcal Vaccination: No Review Of Systems Cardiovascular: Negative for: Chest Pain, Palpitations Respiratory: Negative for: Shortness of Breath Gastrointestinal: Negative for: Abdominal Pain Genitourinary: Negative for: Incontinence Musculoskeletal: Positive for: Back Pain Neurological: Negative for: Weakness, Numbness Physical Exam - Physical Exam Appears: Non-toxic, No Acute Distress Skin: Normal Color, Warm, Dry Head: Atraumatic, Normacephalic Eye(s): bilateral: Normal Inspection Oral Mucosa: Moist Chest: Symmetrical, No Tenderness Cardiovascular: Rhythm Regular Respiratory: Normal Breath Sounds, No Rales, No Rhonchi, No Wheezing Gastrointestinal/Abdominal: Soft, No Tenderness Back: No Vertebral Tenderness, No Paraspinal Tenderness Neurological/Psych: Oriented x3, Normal Speech, Normal Motor, Normal Sensation ED Course And Treatment O2 Sat by Pulse Oximetry: 94 (Room air) Pulse Ox Interpretation: Normal Disposition Counseled Patient/Family Regarding: Diagnosis - Disposition Disposition: HOME/ ROUTINE Disposition Time: 07:16 Condition: STABLE Forms: [employer] (Upper Sorbian) - Clinical Impression Clinical Impression: Low back pain - Scribe Statement The provider has reviewed the documentation as recorded by the Scribe Jovi Brock
[2017-08-29 06:06] VITALS: BP 126/53; PULSE 72; RESP 18
== END 2017-08-29 06:20 | disposition home or self-care (01) ==
LOC: C.ER 01:09
DX: M54.5 Low back pain (principal)

== ENCOUNTER 2017-10-13 03:56 | Emergency (ER) | payer MEDICARE ==
[2017-10-13 03:58] VITALS: BMI 38.4
[2017-10-13 04:12] VITALS: BP 142/79; TEMP 97.5; O2SAT 97
--- NOTE | 2017-10-13 04:17 | C.PDOC ---
Time Seen by Provider: 10/13/17 04:17 Chief Complaint (Nursing): Dizziness/Lightheaded Past Medical History Vital Signs: Last Vital Signs Temp 97.5 F L 10/13/17 04:07 Pulse 80 10/13/17 04:07 Resp 14 10/13/17 04:07 BP 142/79 10/13/17 04:07 Pulse Ox 97 10/13/17 04:07 - Medical History PMH: COPD, Diabetes, Rheumatoid Arthritis Surgical History: Tonsillectomy Family History: States: Unknown Family Hx - Social History Hx Alcohol Use: No Hx Substance Use: No - Immunization History Hx Tetanus Toxoid Vaccination: No Hx Influenza Vaccination: No Hx Pneumococcal Vaccination: No ED Course And Treatment O2 Sat by Pulse Oximetry: 97 Disposition Counseled Patient/Family Regarding: Studies Performed, Diagnosis - Disposition Disposition Time: 04:17
--- NOTE | 2017-10-13 04:45 | C.PDOC ---
History Of Present Illness Patient brought in by EMS after he was found loitering in front of a [employer]. Patient is homeless, initially he stated he was dizzy but now denies dizziness as well as other complaints at this time. Time Seen by Provider: 10/13/17 04:17 Chief Complaint (Nursing): Dizziness/Lightheaded History Per: Patient History/Exam Limitations: no limitations Onset/Duration Of Symptoms: Hrs Current Symptoms Are (Timing): Still Present Severity: None Pain Scale Rating Of: 0 Recent travel outside of the [place]: No Past Medical History Reviewed: Historical Data, Nursing Documentation, Vital Signs Vital Signs: Last Vital Signs Temp 97.5 F L 10/13/17 04:07 Pulse 80 10/13/17 04:07 Resp 14 10/13/17 04:07 BP 142/79 10/13/17 04:07 Pulse Ox 97 10/13/17 05:23 - Medical History PMH: COPD, Diabetes, Rheumatoid Arthritis Surgical History: Tonsillectomy Family History: States: No Known Family Hx - Social History Hx Alcohol Use: No Hx Substance Use: No - Immunization History Hx Tetanus Toxoid Vaccination: No Hx Influenza Vaccination: No Hx Pneumococcal Vaccination: No Review Of Systems Constitutional: Negative for: Fever, Chills Cardiovascular: Negative for: Chest Pain Respiratory: Negative for: Shortness of Breath Gastrointestinal: Negative for: Nausea, Vomiting Neurological: Negative for: Dizziness Physical Exam - Physical Exam Appears: Non-toxic, Other (Slightly disheveled) Skin: Warm, Dry Head: Normacephalic Oral Mucosa: Moist Chest: Symmetrical, No Tenderness Cardiovascular: Rhythm Regular Respiratory: No Rales, No Rhonchi, No Wheezing Gastrointestinal/Abdominal: Soft, No Tenderness Extremity: Pedal Edema, Other (Poor chronic vascular skin changes to lower extremities) Neurological/Psych: Oriented x3 Gait: With Assistance (Walker) ED Course And Treatment O2 Sat by Pulse Oximetry: 97 (Room air) Pulse Ox Interpretation: Normal Disposition Counseled Patient/Family Regarding: Studies Performed, Diagnosis - Disposition Disposition Time: 04:45 Condition: FAIR Forms: [facility] (Azeri) - Clinical Impression Clinical Impression: Encounter for medical assessment - Scribe Statement The provider has reviewed the documentation as recorded by the Scribe Jovi Brock All medical record entries made by the Scribe were at my direction and personally dictated by me. I have reviewed the chart and agree that the record accurately reflects my personal performance of the history, physical exam, medical decision making, and the department course for this patient. I have also personally directed, reviewed, and agree with the discharge instructions and disposition. Physician Patient Turnover Patient Signed Over To: Nolvia Corado Handoff Comments: re-eval and disposition
[2017-10-13 07:13] VITALS: PULSE 79; RESP 19
== END 2017-10-13 06:30 | disposition home or self-care (01) ==
LOC: C.ER 03:56
DX: Z00.00 Encounter for general adult medical examination without abnormal findings (principal); Z59.0 Homelessness

== ENCOUNTER 2017-10-14 03:44 | Emergency (ER) | payer MEDICARE ==
[2017-10-14 03:46] VITALS: BMI 38.4
[2017-10-14 04:37] VITALS: O2SAT 95
--- NOTE | 2017-10-14 05:11 | C.PDOC ---
History Of Present Illness Patient is a 72 y/o male who presents to the ED stating he is homeless and needs a place to stay. Patient denies any fever or chills. No other physical complaints at this time. Time Seen by Provider: 10/14/17 05:00 Chief Complaint (Nursing): Medical Clearance History Per: Patient History/Exam Limitations: no limitations Current Symptoms Are (Timing): Gone Severity: None Recent travel outside of the [place]: No Past Medical History Reviewed: Historical Data, Nursing Documentation, Vital Signs Vital Signs: Last Vital Signs Temp 98.6 F 10/14/17 04:35 Pulse 68 10/14/17 04:35 Resp 16 10/14/17 04:35 BP 164/81 H 10/14/17 04:35 Pulse Ox 95 10/14/17 05:12 - Medical History PMH: COPD, Diabetes, Pneumonia (a year ago), Rheumatoid Arthritis Surgical History: Tonsillectomy Family History: States: No Known Family Hx - Social History Hx Tobacco Use: Yes (former smoker) Hx Alcohol Use: No Hx Substance Use: No - Immunization History Hx Tetanus Toxoid Vaccination: No Hx Influenza Vaccination: No Hx Pneumococcal Vaccination: No Review Of Systems Constitutional: Negative for: Fever, Chills Cardiovascular: Negative for: Chest Pain Respiratory: Negative for: Shortness of Breath Gastrointestinal: Negative for: Abdominal Pain Physical Exam - Physical Exam Appears: Non-toxic, No Acute Distress Skin: Warm, Dry Head: Normacephalic Eye(s): bilateral: Normal Inspection Oral Mucosa: Moist Chest: Symmetrical Cardiovascular: Rhythm Regular Respiratory: No Rales, No Rhonchi, No Wheezing Gastrointestinal/Abdominal: Soft, No Tenderness Extremity: Pedal Edema (trace pedal edema, not new) Neurological/Psych: Oriented x3, Normal Speech Gait: With Assistance (with walker) ED Course And Treatment O2 Sat by Pulse Oximetry: 95 Pulse Ox Interpretation: Normal Progress Note: Patient is under ED obs until am. list of homeless shelters given Reevaluation Time: 06:16 Reassessment Condition: Improved Disposition Counseled Patient/Family Regarding: Diagnosis, Need For Followup - Disposition Referrals: [facility] [Outside] Disposition: HOME/ ROUTINE Disposition Time: 06:17 Condition: FAIR Forms: [facility] (Bulgarian), General Discharge Instructions - Clinical Impression Clinical Impression: Encounter for medical assessment - Scribe Statement The provider has reviewed the documentation as recorded by the Rizwanibchris Edwards All medical record entries made by the Darya were at my direction and personally dictated by me. I have reviewed the chart and agree that the record accurately reflects my personal performance of the history, physical exam, medical decision making, and the department course for this patient. I have also personally directed, reviewed, and agree with the discharge instructions and disposition.
[2017-10-14 06:53] VITALS: BP 148/78; PULSE 72; RESP 20; TEMP 98.2
== END 2017-10-14 06:51 | disposition home or self-care (01) ==
LOC: C.ER 03:44
DX: Z76.89 Persons encountering health services in other specified circumstances (principal); Z59.0 Homelessness; M06.9 Rheumatoid arthritis, unspecified; E11.9 Type 2 diabetes mellitus without complications; J44.9 Chronic obstructive pulmonary disease, unspecified; Z87.891 Personal history of nicotine dependence

== ENCOUNTER 2017-10-26 15:58 | Inpatient (IN) | payer MEDICARE ==
[2017-10-26 15:58] VITALS: BMI 38.4
[2017-10-26 19:50] LABS: BASO % 0.5 % (0.0-2.0); EOS # 0.5 K/uL (0.0-0.7); HEMOGLOBIN 10.8 g/dL (12.0-18.0); LYMPH # 2.6 K/uL (1.0-4.3); LYMPH % 26.9 % (20.0-40.0); MEAN CORPUSCULAR HEMOGLOBIN 27.4 pg (27.0-31.0); MEAN CORPUSCULAR HGB CONC 32.8 g/dL (33.0-37.0); MONO # 1.4 K/uL (0.0-0.8); NEUT % 52.6 % (50.0-75.0); NRBC % 0.2 % (0.0-2.0); RBC 3.94 Mil/uL (4.40-5.90); RED CELL DISTRIBUTION WIDTH 13.7 % (11.5-14.5); WHITE BLOOD COUNT 9.6 K/uL (4.8-10.8)
[2017-10-26 19:53] LABS: MEAN CELL VOLUME 83.4 fL (80.0-94.0)
[2017-10-26 20:05] LABS: ALB/GLOB RATIO 1.1 (1.0-2.1); ALBUMIN 4.1 g/dL (3.5-5.0); ALT/SGPT 27 U/L (21-72); AST/SGOT 23 U/L (17-59); BLOOD UREA NITROGEN 36 mg/dL (9-20); CALCIUM 9.2 mg/dl (8.6-10.4); GFR AFRICAN-AMERICAN > 60; GFR NON-AFRICAN AMERICAN > 60
--- NOTE | 2017-10-26 20:29 | CT ---
EXAM: CT Head Without Intravenous Contrast CLINICAL HISTORY: 72 years old, male; Condition or disease; Headache; Headache not specified TECHNIQUE: Axial computed tomography images of the head/brain without intravenous contrast. All CT scans at this facility use one or more dose reduction techniques, viz.: automated exposure control; ma/kV adjustment per patient size (including targeted exams where dose is matched to indication; i.e. head); or iterative reconstruction technique. COMPARISON: No relevant prior studies available. FINDINGS: Brain: [id number] atrophy. No intracranial hemorrhage. No mass. Minimal decreased attenuation within periventricular white matter. Probable chronic lacunar infarct about RIGHT basal ganglia. Probable chronic lacunar infarct within right cerebellum. No definite edema. Ventricles: No hydrocephalus. Bones/joints: No acute fracture. Soft tissues: Unremarkable. Vasculature: Mild atherosclerotic disease of intracranial arteries. Sinuses: Scattered mild mucosal thickening. Few large maxillary retention cysts. Mastoid air cells: Partial opacification of mastoids. Orbits: Unremarkable as visualized. IMPRESSION: 1. Nonspecific white matter changes. Acute infarction may be CT occult within first 24 hours. If a focal deficit persists, consider followup CT or MRI for further evaluation. 2. Sinus disease. 3. Mastoid disease. 4. Incidental/non-acute findings are described above.
--- NOTE | 2017-10-26 20:30 | C.PDOC ---
History Of Present Illness 72 year old male presents to the ED for evaluation after suffering a syncopal episode while at [employer] earlier today. Patient is complaining of lightheadedness and dizziness. He denies any pain at this time. Chief Complaint (Nursing): Weakness/Neurological Deficit History Per: Patient History/Exam Limitations: no limitations Onset/Duration Of Symptoms: Hrs Current Symptoms Are (Timing): Still Present Activity At Onset Of Symptoms: Standing Associated Symptoms Preceding Syncopal Episode: No Predromal Symptoms (Sudden Onset), Lightheadedness Additional History Per: Patient Past Medical History Reviewed: Historical Data, Nursing Documentation, Vital Signs Vital Signs: Last Vital Signs Temp 97.9 F 10/26/17 16:33 Pulse 80 10/26/17 16:33 Resp 20 10/26/17 16:33 BP 149/83 10/26/17 16:33 Pulse Ox 98 10/26/17 21:32 - Medical History PMH: COPD, Diabetes, Pneumonia (a year ago), Rheumatoid Arthritis Surgical History: Tonsillectomy Family History: States: Unknown Family Hx - Social History Hx Tobacco Use: Yes (former smoker) Hx Alcohol Use: No Hx Substance Use: No - Immunization History Hx Tetanus Toxoid Vaccination: No Hx Influenza Vaccination: No Hx Pneumococcal Vaccination: No Review Of Systems Neurological: Positive for: Dizziness, Other (lightheadedness, s/p syncopal episode ) Physical Exam - Physical Exam Appears: Non-toxic, No Acute Distress Skin: Normal Color, Warm, Dry Head: Atraumatic, Normacephalic Eye(s): bilateral: Normal Inspection Oral Mucosa: Moist Neck: Supple Chest: Symmetrical, No Deformity, No Tenderness Cardiovascular: Rhythm Regular, No Murmur Respiratory: Normal Breath Sounds, No Rales, No Rhonchi, No Wheezing Extremity: Normal ROM, Capillary Refill (less than 2 seconds ) Neurological/Psych: Oriented x3, Normal Speech, Normal Cognition, Other (awake, alert, conscious. no focal deficits ) Gait: Steady ED Course And Treatment - Laboratory Results Result Diagrams: 10/26/17 19:47 10/26/17 19:47 ECG: Interpreted By Me, Viewed By Me ECG Rhythm: Sinus Rhythm ECG Interpretation: No Acute Changes, Abnormal Interpretation Of ECG: NSR, left axis deviation, abnormal tracings Rate From EC O2 Sat by Pulse Oximetry: 98 (on RA) Pulse Ox Interpretation: Normal - CT Scan/US CT Head Other Rad Studies (CT/US): Interpreted By Me, Read By Radiologist, Radiology Report Reviewed CT/US Interpretation: EXAM: CT Head Without Intravenous Contrast. CLINICAL HISTORY: 72 years old, male; Condition or disease; Headache; Headache not specified. TECHNIQUE: Axial computed tomography images of the head/brain without intravenous contrast. All CT scans at. this facility use one or more dose reduction techniques, viz.: automated exposure control; ma/kV. adjustment per patient size (including targeted exams where dose is matched to indication; i.e. head);. or iterative reconstruction technique. COMPARISON: No relevant prior studies available. FINDINGS: Brain: Brri-mi-[id number] atrophy. No intracranial hemorrhage. No mass. Minimal decreased. attenuation within periventricular white matter. Probable chronic lacunar infarct about RIGHT basal. ganglia. Probable chronic lacunar infarct within right cerebellum. No definite edema. Ventricles: No hydrocephalus. Bones/joints: No acute fracture. Soft tissues: Unremarkable. Vasculature: Mild atherosclerotic disease of intracranial arteries. Sinuses: Scattered mild mucosal thickening. Few large maxillary retention cysts. Mastoid air cells: Partial opacification of mastoids. Orbits: Unremarkable as visualized. IMPRESSION: 1. Nonspecific white matter changes. Acute infarction may be CT occult within first 24 hours. If a. focal deficit persists, consider followup CT or MRI for further evaluation. 2. Sinus disease. 3. Mastoid disease. 4. Incidental/non-acute findings are described above. Progress Note: Bloodwork, CT Head and EKG ordered and reviewed. NIHSS Stroke Scale 2 - Date/Time Evaluation Performed Date Performed: 10/26/17 When Was NIHSS Performed: Baseline - How Severe is the Stroke Level of Consciousness: 0=Alert LOC to Questions: 0=Both comments correct LOC to commands: 0=Obeys both correctly Visual: 0=No visual loss Facial: 0=Normal Motor Arm - Left: 0=No drift Motor Arm - Right: 0=No drift Motor Leg - Left: 0=No drift Motor Leg - Right: 0=No drift Limb Ataxia: 0=Absent Sensory: 0=Normal Best Language: 0=No aphasia Dysarthia: 0=Normal articulation Extinction & Inattention (Neglect): 0=Normal, no object Disposition Discussed With DrRhoda: Larry Espino Jr. Doctor Will See Patient In The: Hospital Counseled Patient/Family Regarding: Diagnosis - Disposition Disposition: HOSPITALIZED Disposition Time: 21:32 Condition: STABLE - POA Present On Arrival: None - Clinical Impression Clinical Impression: Syncope - Scribe Statement The provider has reviewed the documentation as recorded by the Scribe (Lyndsay Jacques) Provider Attestation: All medical record entries made by the Scribe were at my direction and personally dictated by me. I have reviewed the chart and agree that the record accurately reflects my personal performance of the history, physical exam, medical decision making, and the department course for this patient. I have also personally directed, reviewed, and agree with the discharge instructions and disposition.
[2017-10-26] MEDS ORDERED: Sodium Chloride 0.9% 1,000 ML IV ONE (20:47)
[2017-10-26] MEDS ORDERED: Sodium Chloride 0.9% 1,000 ML ONE (20:54)
[2017-10-26 21:14] LABS: URINE BILIRUBIN NEGATIVE (NEGATIVE); URINE BLOOD NEGATIVE (NEGATIVE); URINE CLARITY Clear (Clear); URINE COLOR Yellow (YELLOW); URINE GLUCOSE (UA) 1+ mg/dL (Normal); URINE LEUKOCYTE ESTERASE NEG Leu/uL (Negative); URINE NITRATE NEGATIVE (NEGATIVE); URINE PROTEIN 1+ mg/dL (NEGATIVE); URINE UROBILINOGEN NORMAL mg/dL (0.2-1.0)
[2017-10-26 21:28] LABS: BARBITURATES, UR NEGATIVE (NEGATIVE); BENZODIAZEPINES, UR NEGATIVE (NEGATIVE); OPIATES, UR NEGATIVE (NEGATIVE); PHENCYCLIDINE, UR NEGATIVE (NEGATIVE)
--- NOTE | 2017-10-26 22:20 | CP.PCM.HP ---
History of Present Illness - History of Present Illness History of Present Illness: This is a 74 year old male with a hx of DM and HTN. He is homeless and is a poor historian, offering little scope into his medical history. He states that just this morning he was seen at [facility] and "tests" were done there, everything was "normal" and he was discharge. He is presenting with a 5 week hx of syncopal episodes. He states that happen at random, are not provoked by anything in particular, they are seconds in length, he does lose consciousness and he regains his consciousness without any intervention. His most recent fall was this morning at [facility]. He states that it was about a 5 second duration in which he lost consciousness. He does not know is he hit his head. He denies any chest pain, shortness of breath, recent illness, nausea , vomiting, diarrhea, constipation, and focal weakness/numbness/tingling. He states that in the past he was given scripts for diabetic and anti-hypertensive medications but he has never gotten these scripts filled. He denies any form of substance abuse, alcohol, and smoking. PMhx: diabetes, HTN Pshx: tonsillectomy Meds: none Allergies: NKDA Familyhx: unknown Socialhx: homeless, denies alcohol/tobacco(currently)/drugs; he is a former smoker Present on Admission - Present on Admission Any Indicators Present on Admission: No Review of Systems - Constitutional Constitutional: absent: Chills, Fever, Weight Loss, Weakness - EENT Eyes: absent: Blind Spots, Blurred Vision, Loss of Vision Nose/Mouth/Throat: absent: Nasal Congestion, Nasal Discharge - Cardiovascular Cardiovascular: Syncope. absent: Chest Pain, Diaphoresis, Dyspnea - Respiratory Respiratory: absent: Cough, Dyspnea, Wheezing - Gastrointestinal Gastrointestinal: absent: Abdominal Pain, Constipation, Diarrhea, Nausea, Vomiting - Genitourinary Genitourinary: absent: Dysuria - Musculoskeletal Musculoskeletal: absent: Muscle Weakness, Numbness, Tingling - Integumentary Additional comments: chronic skin changes on b/l lower extremities - Neurological Neurological: Dizziness, Syncope. absent: Numbness, Focal Weakness, Headaches, Tingling, Other Visual Disturbances Past Patient History - Infectious Disease Hx of Infectious Diseases: None - Past Medical History & Family History Past Medical History?: Yes - Past Social History Smoking Status: Former Smoker - PULMONARY Hx Chronic Obstructive Pulmonary Disease (COPD): Yes Hx Pneumonia: Yes (a year ago) - ENDOCRINE/METABOLIC Hx Diabetes Mellitus Type 1: Yes - MUSCULOSKELETAL/RHEUMATOLOGICAL Hx Rheumatoid Arthritis: Yes - PSYCHIATRIC Hx Substance Use: No - SURGICAL HISTORY Hx Tonsillectomy: Yes - ANESTHESIA Hx Anesthesia: Yes Hx Anesthesia Reactions: No Meds Allergies/Adverse Reactions: Allergies Allergy/AdvReac Type Severity Reaction Status Date / Time No Known Allergies Allergy Verified 10/26/17 16:36 Physical Exam - Constitutional Appears: No Acute Distress, Unkempt - Head Exam Head Exam: ATRAUMATIC, NORMOCEPHALIC - Eye Exam Eye Exam: EOMI, PERRL - ENT Exam ENT Exam: Mucous Membranes Moist - Respiratory Exam Respiratory Exam: Clear to Auscultation Bilateral, NORMAL BREATHING PATTERN. absent: Rales, Rhonchi, Wheezes - Cardiovascular Exam Cardiovascular Exam: REGULAR RHYTHM, +S1, +S2 - GI/Abdominal Exam GI & Abdominal Exam: Soft. absent: Distended, Guarding, Tenderness - Extremities Exam Extremities exam: Positive for: pedal edema (+1). Negative for: calf tenderness Additional comments: extensive chronic skin changes on the lower extremities bilaterally with multiple cuts/scrapes/scabs - Neurological Exam Neurological exam: Alert, CN II-XII Intact, Oriented x3 - Psychiatric Exam Psychiatric exam: Normal Affect, Normal Mood - Skin Skin Exam: Dry, Warm Results - Vital Signs Recent Vital Signs: Last Vital Signs Temp 97.9 F 10/26/17 16:33 Pulse 80 10/26/17 16:33 Resp 20 10/26/17 16:33 BP 149/83 10/26/17 16:33 Pulse Ox 98 10/26/17 21:32 - Labs Result Diagrams: 10/26/17 19:47 10/26/17 19:47 Labs: Laboratory Results - last 24 hr 10/26/17 10/26/17 10/26/17 19:47 19:47 20:04 WBC 9.6 RBC 3.94 L Hgb 10.8 L Hct 32.9 L MCV 83.4 D MCH 27.4 MCHC 32.8 L RDW 13.7 Plt Count 286 MPV 7.0 L Neut % (Auto) 52.6 Lymph % (Auto) 26.9 [place] % (Auto) 15.0 H Eos % (Auto) 5.0 H Baso % (Auto) 0.5 Neut # (Auto) 5.0 Lymph # (Auto) 2.6 [place] # (Auto) 1.4 H Eos # (Auto) 0.5 Baso # (Auto) 0.0 Sodium 136 Potassium 4.7 Chloride 98 Carbon Dioxide 27 Anion Gap 16 BUN 36 H Creatinine 1.1 Est GFR ( Amer) > 60 Est GFR (Non-Af Amer) > 60 POC Glucose (mg/dL) 139 H Random Glucose 136 H Calcium 9.2 Total Bilirubin 0.9 AST 23 ALT 27 Alkaline Phosphatase 60 Troponin I < 0.0120 Total Protein 8.0 Albumin 4.1 Globulin 3.9 Albumin/Globulin Ratio 1.1 Lipase Urine Color Urine Clarity Urine pH Ur Specific [place] Urine Protein Urine Glucose (UA) Urine Ketones Urine Blood Urine Nitrate Urine Bilirubin Urine Urobilinogen Ur Leukocyte Esterase Urine WBC (Auto) Urine RBC (Auto) Urine Opiates Screen Urine Methadone Screen Ur Barbiturates Screen Ur Phencyclidine Scrn Ur Amphetamines Screen U Benzodiazepines Scrn U Oth Cocaine Metabols U Cannabinoids Screen 10/26/17 10/26/17 10/26/17 21:02 21:02 21:02 WBC RBC Hgb Hct MCV MCH MCHC RDW Plt Count MPV Neut % (Auto) Lymph % (Auto) [place] % (Auto) Eos % (Auto) Baso % (Auto) Neut # (Auto) Lymph # (Auto) [place] # (Auto) Eos # (Auto) Baso # (Auto) Sodium Potassium Chloride Carbon Dioxide Anion Gap BUN Creatinine Est GFR ( Amer) Est GFR (Non-Af Amer) POC Glucose (mg/dL) Random Glucose Calcium Total Bilirubin AST ALT Alkaline Phosphatase Troponin I Total Protein Albumin Globulin Albumin/Globulin Ratio Lipase 208 Urine Color Yellow Urine Clarity Clear Urine pH 5.0 Ur Specific [place] 1.015 Urine Protein 1+ H Urine Glucose (UA) 1+ H Urine Ketones Negative Urine Blood Negative Urine Nitrate Negative Urine Bilirubin Negative Urine Urobilinogen Normal Ur Leukocyte Esterase Neg Urine WBC (Auto) 1 Urine RBC (Auto) < 1 Urine Opiates Screen Negative Urine Methadone Screen Negative Ur Barbiturates Screen Negative Ur Phencyclidine Scrn Negative Ur Amphetamines Screen Negative U Benzodiazepines Scrn Negative U Oth Cocaine Metabols Negative U Cannabinoids Screen Negative Assessment & Plan - Assessment and Plan (Free Text) Plan: Syncope Admission to Tele CT head done in ED- negative for acute changes; consider repeat CT/MRI if focal deficits present/further concerns UA on admission +1 glucose and protein WBC on admission 9.6 UDS negative First Trop negative- follow up MALIK's x2 Follow up carotid doppler Follow up Echo Follow up orthostatics Follow up UCX Follow up EKG Anemia hemoglobin 10.8 on admission Follow up Iron/TIBC/Ferritin/Folate/B12 Follow up stool occult blood HTN Start lisinopril 5mg PO daily, crestor 10mg PO qhs DM ISS Blood sugar ACHS hypoglycemia protocol Start lisinopril 5mg PO daily, crestor 10mg PO qhs PPX Protonix 40mg PO daily Lovenox 30mg SC q12 Diabetic-heart healthy diet Case discussed with Dr. Srinivas Schneider D.O.
[2017-10-27 06:18] LABS: BASO % 0.4 % (0.0-2.0); EOS # 0.4 K/uL (0.0-0.7); EOS % 5.8 % (0.0-4.0); HEMOGLOBIN 10.2 g/dL (12.0-18.0); LYMPH # 2.4 K/uL (1.0-4.3); LYMPH % 31.6 % (20.0-40.0); MEAN CELL VOLUME 83.6 fL (80.0-94.0); MEAN CORPUSCULAR HEMOGLOBIN 27.9 pg (27.0-31.0); MEAN CORPUSCULAR HGB CONC 33.3 g/dL (33.0-37.0); MEAN PLATELET VOLUME 7.2 fL (7.2-11.7); MONO # 0.9 K/uL (0.0-0.8); MONO % 11.6 % (0.0-10.0); NEUT # 3.8 K/uL (1.8-7.0); NEUT % 50.6 % (50.0-75.0); RBC 3.65 Mil/uL (4.40-5.90); RED CELL DISTRIBUTION WIDTH 13.9 % (11.5-14.5); WHITE BLOOD COUNT 7.5 K/uL (4.8-10.8)
[2017-10-27 07:37] LABS: AST/SGOT 18 U/L (17-59)
[2017-10-27 07:38] LABS: ALBUMIN 3.5 g/dL (3.5-5.0); ALT/SGPT 25 U/L (21-72); BLOOD UREA NITROGEN 26 mg/dL (9-20); CALCIUM 8.8 mg/dl (8.6-10.4); GFR AFRICAN-AMERICAN > 60; GFR NON-AFRICAN AMERICAN > 60; HDL CHOLESTEROL 24 mg/dL (30-70)
[2017-10-27 07:47] LABS: LDL CHOLESTEROL 54 mg/dL (0-129)
[2017-10-27] MEDS: (Novolog) Insulin Aspart, Recombinant 100 u/ml 10 ml vial SC SCH ×4 (07:54→21:36)
[2017-10-27 08:39] LABS: FOLATE 7.4 ng/mL
[2017-10-27] MEDS: Enoxaparin 30 mg Syringe SC SCH ×2 (09:34→21:51)
[2017-10-27] MEDS: Pantoprazole 40 mg EC Tab PO SCH (09:34)
--- NOTE | 2017-10-27 12:55 | VASCLAB ---
PROCEDURE: HISTORY: syncope COMPARISON: None available. TECHNIQUE: Grayscale and duplex Doppler evaluation of the cervical carotid and vertebral arteries were performed. The common carotid, carotid bifurcations and cervical Internal Carotid Artery (ICA) and proximal External Carotid Artery (ECA) were evaluated. The vertebral arteries were evaluated for gross patency and flow direction. Report prepared by Jovi Smith, BS, RVT FINDINGS: RIGHT CAROTID ARTERIES: 1. Common Carotid Artery: No significant focal plaque formation of the right common carotid artery. Maximum Peak Systolic velocity: 85 cm/sec: End-diastolic velocity 12 cm/sec. 2. Carotid Bifurcation: Homogeneous plaque formation. Maximum Peak Systolic velocity: 80 cm/sec: End-diastolic velocity 17 cm/sec. 3. Internal Carotid Artery: Plaque description: 3.1. Proximal Segment: Peak systolic velocity 77 cm/sec: End-diastolic velocity 19 cm/sec - % stenosis 0-15% 3.2. Middle Segment: Peak systolic velocity 51 cm/sec: End-diastolic velocity 19 cm/sec - % stenosis 0-15% 3.3. Distal Segment: Peak systolic velocity 76 cm/sec: End-diastolic velocity 23 cm/sec - % stenosis 0-15% 4. External Carotid Artery: No significant focal plaque formation. Peak systolic velocity 58 cm/sec 5. ICA/CCA Ratio: 0.9 LEFT CAROTID ARTERIES: 1. Common Carotid Artery: Moderate plaque formation of the left proximal and distal CCA which results in hemodynamically significant stenosis. Maximum Peak Systolic velocity: 267 cm/sec: End-diastolic velocity 30 cm/sec. 2. Carotid Bifurcation: plaque formation. Maximum Peak Systolic velocity: 173 cm/sec: End-diastolic velocity 18 cm/sec. 3. Internal Carotid Artery: Plaque description: 3.1. Proximal Segment: Peak systolic velocity 130 cm/sec: End-diastolic velocity 30 cm/sec - % stenosis 0-15% 3.2. Middle Segment: Peak systolic velocity 53 cm/sec: End-diastolic velocity 20 cm/sec - % stenosis 0-15% 3.3. Distal Segment: Peak systolic velocity 58 cm/sec: End-diastolic velocity 20 cm/sec - % stenosis 0-15% 4. External Carotid Artery: No significant focal plaque formation. Peak systolic velocity 105 cm/sec 5. ICA/CCA Ratio: 0.6 VERTEBRAL ARTERIES: 1. Right Vertebral Artery: The right vertebral artery flow direction is antegrade. 2. Left Vertebral Artery: The left vertebral artery flow direction is antegrade. OTHER FINDINGS: 1. Right Brachial Blood pressure: 110 mmHg. 2. Left Brachial Blood pressure: 112 mmHg. IMPRESSION: RIGHT: Duplex scan does not suggest hemodynamically significant stenosis of the right extracranial carotid arteries. LEFT: Duplex scan does not suggest hemodynamically significant stenosis of the left extracranial carotid arteries.
--- NOTE | 2017-10-27 18:26 | CP.PCM.PN ---
Subjective - Date & Time of Evaluation Date of Evaluation: 10/27/17 Time of Evaluation: 18:23 - Subjective Subjective: Medicine progress note for Dr. Espino's service Patient was seen and examined at bedside in no acute distress. Patient has no complaints at this time, but says he feels dizzy, nausea, and headaches occasionally. Patient denies chest pain, abdominal pain, vomiting, fevers. Objective - Vital Signs/Intake and Output Vital Signs (last 24 hours): Temp Pulse Resp BP Pulse Ox 97.9 F 79 18 109/67 98 10/27/17 07:55 10/27/17 07:55 10/27/17 07:55 10/27/17 07:55 10/27/17 07:55 - Medications Medications: Current Medications Acetaminophen (Tylenol 325mg Tab) 650 mg PO Q6 PRN PRN Reason: Pain, moderate (4-7) Enoxaparin Sodium (Lovenox) 30 mg SC Q12 [facility] Last Admin: 10/27/17 09:34 Dose: 30 mg Insulin Aspart (Novolog) 0 unit SC ACHS [facility] PRN Reason: Protocol Last Admin: 10/27/17 07:54 Dose: Not Given Lisinopril (Zestril) 5 mg PO DAILY [facility] Last Admin: 10/27/17 09:35 Dose: 5 mg Pantoprazole Sodium (Protonix Ec Tab) 40 mg PO DAILY [facility] Last Admin: 10/27/17 09:34 Dose: 40 mg Rosuvastatin Calcium (Crestor) 10 mg PO HS [facility] - Labs Labs: 10/27/17 06:07 10/27/17 06:07 - Constitutional Appears: No Acute Distress - Head Exam Head Exam: ATRAUMATIC, NORMAL INSPECTION - ENT Exam ENT Exam: Mucous Membranes Moist - Respiratory Exam Respiratory Exam: Clear to Ausculation Bilateral, NORMAL BREATHING PATTERN. absent: Rales, Rhonchi, Wheezes, Respiratory Distress - Cardiovascular Exam Cardiovascular Exam: REGULAR RHYTHM, +S1, +S2 - GI/Abdominal Exam GI & Abdominal Exam: Soft, Normal Bowel Sounds. absent: Distended, Firm, Tenderness - Extremities Exam Extremities Exam: Pedal Edema (4+ pitting edema b/l LE), Tenderness (5 toes on right foot). absent: Normal Inspection (poor feet hygiene) - Neurological Exam Neurological Exam: Alert, Awake, Oriented x3 - Psychiatric Exam Psychiatric exam: Flat Affect - Skin Skin Exam: Dry, Warm Assessment and Plan - Assessment and Plan (Free Text) Plan: Syncope Admission to Tele CT head done in ED- negative for acute changes; consider repeat CT/MRI if focal deficits present/further concerns UA on admission +1 glucose and protein WBC on admission 9.6 UDS negative MALIK's x2- negative Carotid doppler: negative Echo: f/u Orthostatics: lying 135/79, HR 86, sitting 132/84, HR 82; standing 130/79, HR 86 UCX: negative EKG: nsr Anemia hemoglobin 10.8 on admission Iron/TIBC/Ferritin/Folate/B12-wnl Stool occult blood- f/u HTN Start lisinopril 5mg PO daily, crestor 10mg PO qhs DM ISS Blood sugar ACHS hypoglycemia protocol Start lisinopril 5mg PO daily, crestor 10mg PO qhs LE Edema: Lasix 40mg IV daily Venous dopplers: f/u PPX Protonix 40mg PO daily Lovenox 30mg SC q12 Diabetic-heart healthy diet PT/OT Case management/social media intern consult for [facility] placement Podiatry consult for poor feet hygiene Case discussed with Dr. Espino
--- NOTE | 2017-10-27 23:00 | CARD ---
APPROVED REPORT EXAM: Two-dimensional and M-mode echocardiogram with Doppler and color Doppler. Other Information Quality : GoodRhythm : INDICATION Syncope DIZZINES Echo Enhancing Agent Indication: Rule Out Septal Defect Agent/Amount Used: Agitated Saline 2D DIMENSIONS IVSd1.0 (0.7-1.1cm)LVDd5.1 (3.9-5.9cm) LVOT Diameter2.3 (1.8-2.4cm)PWd1.0 (0.7-1.1cm) LVDs3.0 (2.5-4.0cm)FS (%) 40.6 % LVEF (%)71.0 (>50%) M-Mode DIMENSIONS Left Atrium (MM)5.03 (2.5-4.0cm)Aortic Root4.06 (2.2-3.7cm) Aortic Cusp Exc.2.45 (1.5-2.0cm) Aortic Valve AoV Peak Axmgivft776.7cm/sAoV VTI42.7cmAO Peak GR.26mmHg LVOT Peak Eytbexur622.1cm/sLVOT VTI28.55cmAO Mean GR.13mmHg HUE (VMAX)2.19zx4HOM (VTI)2.85cm2 Mitral Valve MV E Imdluoyt611.8cm/sMV A Acyqrmdl71.3cm/sE/A ratio1.4 TDI E/Lateral E'0.0E/Medial E'0.0 Tricuspid Valve TR Peak Yvlyccki758an/sTR Peak Gr.17osAuSYRE86vaEm LEFT VENTRICLE The left ventricle is normal size. There is normal left ventricular wall thickness. The left ventricular function is normal. The left ventricular ejection fraction is within the normal range. There is normal LV segmental wall motion. The left ventricular diastolic function is normal. RIGHT VENTRICLE The right ventricle is normal size. ATRIA The left atrium is moderately dilated. AORTIC VALVE There is trace aortic regurgitation. MITRAL VALVE Mitral regurgitation is trace to mild. TRICUSPID VALVE There is moderate tricuspid regurgitation. <Conclusion> Normal LV systolic function. Moderately dilated LA. Trace AR. Trace MR. Moderate TR.
[2017-10-28 07:16] LABS: BASO % 0.4 % (0.0-2.0); EOS # 0.2 K/uL (0.0-0.7); EOS % 1.5 % (0.0-4.0); LYMPH # 1.5 K/uL (1.0-4.3); LYMPH % 14.6 % (20.0-40.0); MEAN CELL VOLUME 83.6 fL (80.0-94.0); MEAN CORPUSCULAR HEMOGLOBIN 28.1 pg (27.0-31.0); MEAN CORPUSCULAR HGB CONC 33.7 g/dL (33.0-37.0); MEAN PLATELET VOLUME 7.5 fL (7.2-11.7); MONO % 9.4 % (0.0-10.0); NEUT # 7.6 K/uL (1.8-7.0); NEUT % 74.1 % (50.0-75.0); RBC 3.56 Mil/uL (4.40-5.90); RED CELL DISTRIBUTION WIDTH 13.9 % (11.5-14.5); WHITE BLOOD COUNT 10.2 K/uL (4.8-10.8)
[2017-10-28 07:30] LABS: ALBUMIN 3.3 g/dL (3.5-5.0); ALT/SGPT 22 U/L (21-72); AST/SGOT 18 U/L (17-59); BLOOD UREA NITROGEN 21 mg/dL (9-20); GFR AFRICAN-AMERICAN > 60; GFR NON-AFRICAN AMERICAN > 60
[2017-10-28] MEDS: (Novolog) Insulin Aspart, Recombinant 100 u/ml 10 ml vial SC SCH ×4 (07:30→23:00)
[2017-10-28 07:36] LABS: CK-MB 0.34 ng/mL (0.0-3.38)
[2017-10-28] MEDS: Enoxaparin 30 mg Syringe SC SCH ×2 (09:37→21:31)
[2017-10-28] MEDS: Pantoprazole 40 mg EC Tab PO SCH (09:38)
--- NOTE | 2017-10-28 13:59 | CP.PCM.PN ---
Subjective - Date & Time of Evaluation Date of Evaluation: 10/28/17 Time of Evaluation: 13:56 - Subjective Subjective: PGY2 progress note for Dr. Espino Pt seen and examined at bedside. No acute events overnight. Pt is still complaining of dizziness while laying in bed. Denies having any CP, SOB, abd pain, N/V/D/C, F/C. 12 point ROS negative except for the above mentioned. Objective - Vital Signs/Intake and Output Vital Signs (last 24 hours): Temp Pulse Resp BP Pulse Ox 100.2 F H 89 20 125/70 95 10/28/17 04:51 10/28/17 07:30 10/28/17 04:51 10/28/17 09:36 10/28/17 04:51 Intake and Output: 10/28/17 10/28/17 06:59 18:59 Intake Total 480 Balance 480 - Medications Medications: Current Medications Acetaminophen (Tylenol 325mg Tab) 650 mg PO Q6 PRN PRN Reason: Pain, moderate (4-7) Enoxaparin Sodium (Lovenox) 30 mg SC Q12 [facility] Last Admin: 10/28/17 09:37 Dose: 30 mg Furosemide (Lasix) 40 mg PO DAILY [facility] Last Admin: 10/28/17 09:36 Dose: 40 mg Insulin Aspart (Novolog) 0 unit SC ACHS [facility] PRN Reason: Protocol Last Admin: 10/28/17 07:30 Dose: Not Given Lisinopril (Zestril) 5 mg PO DAILY [facility] Last Admin: 10/28/17 09:44 Dose: 5 mg Pantoprazole Sodium (Protonix Ec Tab) 40 mg PO DAILY [facility] Last Admin: 10/28/17 09:38 Dose: 40 mg Rosuvastatin Calcium (Crestor) 10 mg PO HS [facility] Last Admin: 10/27/17 21:50 Dose: 10 mg - Labs Labs: 10/28/17 06:50 10/28/17 06:50 - Constitutional Appears: Non-toxic, No Acute Distress - Head Exam Head Exam: ATRAUMATIC - ENT Exam ENT Exam: Mucous Membranes Moist - Respiratory Exam Respiratory Exam: Clear to Ausculation Bilateral. absent: Accessory Muscle Use , Rhonchi, Wheezes, Respiratory Distress - Cardiovascular Exam Cardiovascular Exam: REGULAR RHYTHM, +S1, +S2. absent: Gallop, Rubs, Murmur - GI/Abdominal Exam GI & Abdominal Exam: Soft, Normal Bowel Sounds. absent: Distended, Firm, Guarding, Rigid, Tenderness, Organomegaly - Extremities Exam Extremities Exam: absent: Pedal Edema, Tenderness - Neurological Exam Neurological Exam: Alert, Awake, Oriented x3 - Psychiatric Exam Psychiatric exam: Normal Affect, Normal Mood - Skin Skin Exam: Dry, Intact, Normal Color, Warm Assessment and Plan - Assessment and Plan (Free Text) Assessment: Syncope Admission to Tele CT head done in ED- negative for acute changes; consider repeat CT/MRI if focal deficits present/further concerns UA on admission +1 glucose and protein WBC on admission 9.6 UDS negative MALIK's x3- negative Carotid doppler: negative Echo: normal LV EF of 71% with moderate TR Orthostatics: lying 135/79, HR 86, sitting 132/84, HR 82; standing 130/79, HR 86 UCX: negative EKG: nsr Anemia hemoglobin 10.8 on admission Iron/TIBC/Ferritin/Folate/B12-wnl Stool occult blood- f/u HTN Start lisinopril 5mg PO daily, crestor 10mg PO qhs DM ISS Blood sugar ACHS hypoglycemia protocol Start lisinopril 5mg PO daily, crestor 10mg PO qhs LE Edema: Lasix 40mg IV daily Venous dopplers: f/u PPX Protonix 40mg PO daily Lovenox 30mg SC q12 Diabetic-heart healthy diet PT/OT Case management/home health care social worker consult for [facility] placement Podiatry consult for poor feet hygiene All managements and orders per Dr. Espino
--- NOTE | 2017-10-28 15:12 | CARD ---
APPROVED REPORT EKG Measurement Heart [id number] <Conclusion> Normal sinus rhythm Left axis deviation Abnormal ECG
[2017-10-28 19:50] LABS: SQUAMOUS EPITHIAL < 1 /hpf (0-5); URINE BACTERIA RARE (<OCC); URINE BILIRUBIN NEGATIVE (NEGATIVE); URINE BLOOD NEGATIVE (NEGATIVE); URINE CLARITY Clear (Clear); URINE COLOR Yellow (YELLOW); URINE GLUCOSE (UA) NORMAL (Normal); URINE LEUKOCYTE ESTERASE NEG Leu/uL (Negative); URINE NITRATE NEGATIVE (NEGATIVE); URINE PROTEIN NEGATIVE (NEGATIVE); URINE UROBILINOGEN NORMAL mg/dL (0.2-1.0)
[2017-10-29] MEDS: (Novolog) Insulin Aspart, Recombinant 100 u/ml 10 ml vial SC SCH ×4 (07:30→21:06)
[2017-10-29 08:50] LABS: BASO % 0.3 % (0.0-2.0); EOS # 0.5 K/uL (0.0-0.7); EOS % 5.6 % (0.0-4.0); HEMOGLOBIN 10.1 g/dL (12.0-18.0); LYMPH # 2.1 K/uL (1.0-4.3); LYMPH % 24.4 % (20.0-40.0); MEAN CELL VOLUME 83.4 fL (80.0-94.0); MEAN CORPUSCULAR HEMOGLOBIN 27.6 pg (27.0-31.0); MEAN CORPUSCULAR HGB CONC 33.1 g/dL (33.0-37.0); MEAN PLATELET VOLUME 7.5 fL (7.2-11.7); MONO % 11.3 % (0.0-10.0); NEUT % 58.4 % (50.0-75.0); RBC 3.66 Mil/uL (4.40-5.90); RED CELL DISTRIBUTION WIDTH 13.7 % (11.5-14.5); WHITE BLOOD COUNT 8.5 K/uL (4.8-10.8)
[2017-10-29 09:09] LABS: ALBUMIN 3.3 g/dL (3.5-5.0); ALT/SGPT 21 U/L (21-72); AST/SGOT 18 U/L (17-59); BLOOD UREA NITROGEN 19 mg/dL (9-20); CALCIUM 8.9 mg/dl (8.6-10.4); GFR AFRICAN-AMERICAN > 60; GFR NON-AFRICAN AMERICAN > 60
--- NOTE | 2017-10-29 09:55 | CP.PCM.PN ---
Subjective - Date & Time of Evaluation Date of Evaluation: 10/29/17 Time of Evaluation: 09:52 - Subjective Subjective: PGY2 progress note for Dr. Espino Pt seen and examined at bedside. No acute events overnight. Pt is resting comfortably. He denies having any CP, SOB, abd pain, N/V/D/C, F/C. Tolerating diet well. C/O of cough that is worse than his usual cough. Also c/o lightheadedness when he stands to go to the bathroom. 12 point ROS negative except for the above mentioned. Objective - Vital Signs/Intake and Output Vital Signs (last 24 hours): Temp Pulse Resp BP Pulse Ox 97.6 F 75 20 128/68 95 10/28/17 23:56 10/28/17 23:56 10/28/17 23:56 10/28/17 23:56 10/28/17 23:56 Intake and Output: 10/29/17 10/29/17 06:59 18:59 Intake Total 240 Output Total 200 Balance 40 - Medications Medications: Current Medications Acetaminophen (Tylenol 325mg Tab) 650 mg PO Q6 PRN PRN Reason: Pain, moderate (4-7) Enoxaparin Sodium (Lovenox) 30 mg SC Q12 [facility] Last Admin: 10/28/17 21:31 Dose: 30 mg Furosemide (Lasix) 40 mg PO DAILY [facility] Last Admin: 10/28/17 09:36 Dose: 40 mg Insulin Aspart (Novolog) 0 unit SC ACHS [facility] PRN Reason: Protocol Last Admin: 10/28/17 23:00 Dose: Not Given Lisinopril (Zestril) 5 mg PO DAILY [facility] Last Admin: 10/28/17 09:44 Dose: 5 mg Pantoprazole Sodium (Protonix Ec Tab) 40 mg PO DAILY [facility] Last Admin: 10/28/17 09:38 Dose: 40 mg Pneumococcal Polyvalent Vaccine (Pneumovax 23 Vaccine) 0.5 ml IM .ONCE ONE Stop: 10/30/17 10:01 Rosuvastatin Calcium (Crestor) 10 mg PO HS [facility] Last Admin: 10/28/17 21:30 Dose: 10 mg - Labs Labs: 10/29/17 08:29 10/29/17 08:29 - Constitutional Appears: Non-toxic, No Acute Distress - Head Exam Head Exam: ATRAUMATIC - ENT Exam ENT Exam: Mucous Membranes Moist - Respiratory Exam Respiratory Exam: Clear to Ausculation Bilateral. absent: Accessory Muscle Use , Rhonchi, Wheezes, Respiratory Distress - Cardiovascular Exam Cardiovascular Exam: REGULAR RHYTHM, +S1, +S2 - GI/Abdominal Exam GI & Abdominal Exam: Soft, Normal Bowel Sounds. absent: Distended, Firm, Guarding, Rigid, Tenderness, Organomegaly - Neurological Exam Neurological Exam: Alert, Awake, Oriented x3 - Psychiatric Exam Psychiatric exam: Normal Affect, Normal Mood - Skin Skin Exam: Dry, Intact, Normal Color, Warm Assessment and Plan - Assessment and Plan (Free Text) Assessment: Syncope Admission to Tele CT head done in ED- negative for acute changes; consider repeat CT/MRI if focal deficits present/further concerns Repeat UA from yesterday was normal UDS negative MALIK's x3- negative Carotid doppler: negative Echo: normal LV EF of 71% with moderate TR Orthostatics: lying 135/79, HR 86, sitting 132/84, HR 82; standing 130/79, HR 86 UCX: negative EKG: nsr Anemia hemoglobin 10.8 on admission Iron/TIBC/Ferritin/Folate/B12-wnl Stool occult blood- f/u HTN Start lisinopril 5mg PO daily, crestor 10mg PO qhs DM ISS Blood sugar ACHS hypoglycemia protocol Start lisinopril 5mg PO daily, crestor 10mg PO qhs LE Edema: Lasix 40mg IV daily Venous dopplers: f/u PPX Protonix 40mg PO daily Lovenox 30mg SC q12 Diabetic-heart healthy diet PT/OT Case management/social media marketing specialist consult for [facility] placement Podiatry consult for poor feet hygiene All managements and orders per Dr. Espino
[2017-10-29] MEDS: Enoxaparin 30 mg Syringe SC SCH ×2 (10:32→21:02)
[2017-10-29] MEDS: Pantoprazole 40 mg EC Tab PO SCH (10:32)
[2017-10-30] MEDS: (Novolog) Insulin Aspart, Recombinant 100 u/ml 10 ml vial SC SCH ×2 (07:31→12:56)
[2017-10-30 08:00] VITALS: BP 137/72; RESP 18; TEMP 97.2; O2SAT 94
[2017-10-30 08:26] LABS: BASO % 0.3 % (0.0-2.0); EOS # 0.5 K/uL (0.0-0.7); EOS % 6.6 % (0.0-4.0); HEMOGLOBIN 10.7 g/dL (12.0-18.0); LYMPH % 39.4 % (20.0-40.0); MEAN CELL VOLUME 83.3 fL (80.0-94.0); MEAN CORPUSCULAR HEMOGLOBIN 27.2 pg (27.0-31.0); MEAN CORPUSCULAR HGB CONC 32.7 g/dL (33.0-37.0); MEAN PLATELET VOLUME 7.2 fL (7.2-11.7); MONO # 0.7 K/uL (0.0-0.8); MONO % 9.6 % (0.0-10.0); NEUT # 3.3 K/uL (1.8-7.0); NEUT % 44.1 % (50.0-75.0); NRBC % 0.1 % (0.0-2.0); RBC 3.93 Mil/uL (4.40-5.90); RED CELL DISTRIBUTION WIDTH 13.8 % (11.5-14.5); WHITE BLOOD COUNT 7.5 K/uL (4.8-10.8)
[2017-10-30 08:40] LABS: ALBUMIN 3.5 g/dL (3.5-5.0); ALT/SGPT 25 U/L (21-72); AST/SGOT 16 U/L (17-59); BLOOD UREA NITROGEN 19 mg/dL (9-20); CALCIUM 9.4 mg/dl (8.6-10.4); GFR AFRICAN-AMERICAN > 60; GFR NON-AFRICAN AMERICAN > 60
[2017-10-30] MEDS: Enoxaparin 30 mg Syringe SC SCH (09:31)
[2017-10-30] MEDS: Pantoprazole 40 mg EC Tab PO SCH (09:32)
[2017-10-30] MEDS ORDERED: Pneumococcal 23-Valent Vaccine IM ONE (10:00)
[2017-10-30] MEDS ORDERED: Influenza Vaccine 60 mcg/0.5 mL SYR (4YR UP) IM ONE (10:00)
--- NOTE | 2017-10-30 10:34 | VASCLAB ---
PROCEDURE: Lower Extremity Venous Duplex Exam. HISTORY: LE swelling B/l LE edema, pain PRIORS: None. TECHNIQUE: Bilateral common femoral, femoral, popliteal and posterior tibial, peroneal and great saphenous veins were evaluated. Flow was assessed with color Doppler, compressibility, assessment of phasic flow and augmentation response. Report prepared by Miguel Angel Cabrera, RVT FINDINGS: RIGHT: 1. Common Femoral Vein: 1.1. Compressibility - Fully compressible: Thrombus - None : Flow - Phasic: Augmentation -Normal: Reflux - . 2. Femoral Vein: 2.1. Compressibility - Fully compressible: Thrombus - None : Flow - Phasic: Augmentation -Normal: Reflux - . 3. Popliteal Vein: 3.1. Compressibility - Fully compressible: Thrombus - None : Flow - Phasic: Augmentation -Normal: Reflux - . 4. Posterior Tibial Vein: 4.1. Compressibility - Fully compressible: Thrombus - None: Flow - : Augmentation -: Reflux - . 5. Peroneal Vein: 5.1. Compressibility - Fully compressible: Thrombus - None: Flow - : Augmentation -: Reflux - . 6. Great Saphenous Vein: 6.1. Compressibility - Fully compressible: Thrombus - None: Flow - : Augmentation - : Reflux - . LEFT: 1. Common Femoral Vein: 1.1. Compressibility - Fully compressible: Thrombus - None: Flow - Phasic: Augmentation -Normal: Reflux - . 2. Femoral Vein: 2.1. Compressibility - Fully compressible: Thrombus - None: Flow - Phasic: Augmentation -Normal: Reflux - . 3. Popliteal Vein: 3.1. Compressibility - Fully compressible: Thrombus - None : Flow - Phasic: Augmentation -Normal: Reflux - . 4. Posterior Tibial Vein: 4.1. Compressibility - Fully compressible: Thrombus - None: Flow - : Augmentation -: Reflux - . 5. Peroneal Vein: 5.1. Compressibility - Fully compressible: Thrombus - None: Flow - : Augmentation -: Reflux - . 6. Great Saphenous Vein: 6.1. Compressibility - Fully compressible: Thrombus - None: Flow - Phasic: Augmentation - : Reflux - . OTHER FINDINGS: Right: None significant. Left: None significant. IMPRESSION: Right: No evidence of deep or superficial vein thrombosis of the right lower extremity. Left: No evidence of deep or superficial vein thrombosis of the left lower extremity.
[2017-10-30 11:54] VITALS: PULSE 90
--- NOTE | 2017-10-30 19:54 | CP.PCM.DIS ---
Provider - Provider Date of Admission: 10/27/17 18:26 Attending physician: Larry Espino Jr, MD Time Spent in preparation of Discharge (in minutes): 30 Hospital Course - Lab Results Lab Results: Micro Results 10/28/17 10:30 Blood Blood Culture - Preliminary NO GROWTH AFTER 48 HOURS 10/28/17 11:39 Blood Blood Culture - Preliminary NO GROWTH AFTER 48 HOURS 10/28/17 20:09 Urine Urine Culture - Final No Growth (<1,000 CFU/ML) 10/28/17 Unknown Sputum Gram Stain - Final 10/26/17 21:29 Urine Urine Culture - Final No Growth (<1,000 CFU/ML) Most Recent Lab Values WBC 7.5 K/uL (4.8-10.8) 10/30/17 08:19 RBC 3.93 Mil/uL (4.40-5.90) L 10/30/17 08:19 Hgb 10.7 g/dL (12.0-18.0) L 10/30/17 08:19 Hct 32.8 % (35.0-51.0) L 10/30/17 08:19 MCV 83.3 fL (80.0-94.0) 10/30/17 08:19 MCH 27.2 pg (27.0-31.0) 10/30/17 08:19 MCHC 32.7 g/dL (33.0-37.0) L 10/30/17 08:19 RDW 13.8 % (11.5-14.5) 10/30/17 08:19 Plt Count 315 K/uL (130-400) 10/30/17 08:19 MPV 7.2 fL (7.2-11.7) 10/30/17 08:19 Neut % (Auto) 44.1 % (50.0-75.0) L 10/30/17 08:19 Lymph % (Auto) 39.4 % (20.0-40.0) 10/30/17 08:19 Branch % (Auto) 9.6 % (0.0-10.0) 10/30/17 08:19 Eos % (Auto) 6.6 % (0.0-4.0) H 10/30/17 08:19 Baso % (Auto) 0.3 % (0.0-2.0) 10/30/17 08:19 Neut # (Auto) 3.3 K/uL (1.8-7.0) 10/30/17 08:19 Lymph # (Auto) 3.0 K/uL (1.0-4.3) 10/30/17 08:19 Branch # (Auto) 0.7 K/uL (0.0-0.8) 10/30/17 08:19 Eos # (Auto) 0.5 K/uL (0.0-0.7) 10/30/17 08:19 Baso # (Auto) 0.0 K/uL (0.0-0.2) 10/30/17 08:19 Sodium 139 mmol/L (132-148) 10/30/17 08:19 Potassium 4.1 mmol/L (3.6-5.2) 10/30/17 08:19 Chloride 100 mmol/L (98-107) 10/30/17 08:19 Carbon Dioxide 30 mmol/L (22-30) 10/30/17 08:19 Anion Gap 13 (10-20) 10/30/17 08:19 BUN 19 mg/dL (9-20) 10/30/17 08:19 Creatinine 1.0 mg/dL (0.8-1.5) 10/30/17 08:19 Est GFR ( Amer) > 60 10/30/17 08:19 Est GFR (Non-Af Amer) > 60 10/30/17 08:19 POC Glucose (mg/dL) 187 mg/dL (65-110) H 10/30/17 11:47 Random Glucose 99 mg/dL (75-110) 10/30/17 08:19 Hemoglobin A1c 6.1 % (4.2-6.5) 10/27/17 06:07 Calcium 9.4 mg/dl (8.6-10.4) 10/30/17 08:19 Ferritin 220.0 ng/mL 10/27/17 06:07 Total Bilirubin 0.4 mg/dL (0.2-1.3) 10/30/17 08:19 AST 16 U/L (17-59) L 10/30/17 08:19 ALT 25 U/L (21-72) 10/30/17 08:19 Alkaline Phosphatase 46 U/L (38-126) 10/30/17 08:19 Total Creatine Kinase 20 U/L (55-170) L 10/28/17 06:50 CK-MB (Mass) 0.34 ng/mL (0.0-3.38) 10/28/17 06:50 Troponin I 0.0250 ng/mL (0.00-0.120) 10/28/17 06:50 Total Protein 7.1 g/dL (6.3-8.3) 10/30/17 08:19 Albumin 3.5 g/dL (3.5-5.0) 10/30/17 08:19 Globulin 3.6 gm/dL (2.2-3.9) 10/30/17 08:19 Albumin/Globulin Ratio 1.0 (1.0-2.1) 10/30/17 08:19 Triglycerides 109 mg/dL (0-149) 10/27/17 06:07 Cholesterol 113 mg/dL (0-199) 10/27/17 06:07 LDL Cholesterol Direct 54 mg/dL (0-129) 10/27/17 06:07 HDL Cholesterol 24 mg/dL (30-70) L 10/27/17 06:07 Lipase 208 U/L (23-300) 10/26/17 21:02 Vitamin B12 615 pg/mL (239-931) 10/27/17 06:07 Folate 7.4 ng/mL 10/27/17 06:07 Urine Color Yellow (YELLOW) 10/28/17 19:39 Urine Clarity Clear (Clear) 10/28/17 19:39 Urine pH 5.0 (5.0-8.0) 10/28/17 19:39 Ur Specific [place] 1.015 (1.003-1.030) 10/28/17 19:39 Urine Protein Negative mg/dL (NEGATIVE) 10/28/17 19:39 Urine Glucose (UA) Normal mg/dL (Normal) 10/28/17 19:39 Urine Ketones Negative mg/dL (NEGATIVE) 10/28/17 19:39 Urine Blood Negative (NEGATIVE) 10/28/17 19:39 Urine Nitrate Negative (NEGATIVE) 10/28/17 19:39 Urine Bilirubin Negative (NEGATIVE) 10/28/17 19:39 Urine Urobilinogen Normal mg/dL (0.2-1.0) 10/28/17 19:39 Ur Leukocyte Esterase Neg Afshin/uL (Negative) 10/28/17 19:39 Urine WBC (Auto) 1 /hpf (0-5) 10/28/17 19:39 Urine RBC (Auto) 1 /hpf (0-3) 10/28/17 19:39 Ur Squamous Epith Cells < 1 /hpf (0-5) 10/28/17 19:39 Urine Bacteria Rare (<OCC) 10/28/17 19:39 Urine Opiates Screen Negative (NEGATIVE) 10/26/17 21:02 Urine Methadone Screen Negative (NEGATIVE) 10/26/17 21:02 Ur Barbiturates Screen Negative (NEGATIVE) 10/26/17 21:02 Ur Phencyclidine Scrn Negative (NEGATIVE) 10/26/17 21:02 Ur Amphetamines Screen Negative (NEGATIVE) 10/26/17 21:02 U Benzodiazepines Scrn Negative (NEGATIVE) 10/26/17 21:02 U Oth Cocaine Metabols Negative (NEGATIVE) 10/26/17 21:02 U Cannabinoids Screen Negative (NEGATIVE) 10/26/17 21:02 - Hospital Course Hospital Course: As per admission documentation, This is a 74 year old male with a hx of DM and HTN. He is homeless and is a poor historian, offering little scope into his medical history. He states that just this morning he was seen at [facility] and "tests" were done there, everything was "normal" and he was discharge. He is presenting with a 5 week hx of syncopal episodes. He states that happen at random, are not provoked by anything in particular, they are seconds in length, he does lose consciousness and he regains his consciousness without any intervention. [facility] most recent [facility] He states that it was about a 5 second duration in which he lost consciousness. He does not know is he hit his head. He denies any chest pain, shortness of breath, recent illness, nausea , vomiting, diarrhea, constipation, and focal weakness/numbness/tingling. He states that in the past he was given scripts for diabetic and anti-hypertensive medications but he has never gotten these scripts filled. He denies any form of substance abuse, alcohol, and smoking. Hospital Course Patient admitted for syncope and placed on telemetry. CT head done in ED- negative for acute changes UDS negative MALIK's x3- negative Carotid doppler: negative Echo: normal LV EF of 71% with moderate TR Orthostatics: lying 135/79, HR 86, sitting 132/84, HR 82; standing 130/79, HR 86 UCX: negative EKG: NSR Patient's hospital course was stable without any acute events. He was started on lisinopril due to HTN and hx of diabetes. Patient was discharged home. Discharge Instructions. Patient is to be discharged home per Dr. Espino. Patient is to follow up with his primary care physician within one week of discharge. No physical therapy indicated at this time. If patient begins to feel and new or concerning symptoms , please go to nearest emergency room. New Medications: Lisinopril 5mg PO once daily, disp 30 tabs - Constitutional Appears: Non-toxic, No Acute Distress - Head Exam Head Exam: ATRAUMATIC - ENT Exam ENT Exam: Mucous Membranes Moist - Respiratory Exam Respiratory Exam: Clear to Ausculation Bilateral. absent: Accessory Muscle Use , Rhonchi, Wheezes, Respiratory Distress - Cardiovascular Exam Cardiovascular Exam: REGULAR RHYTHM, +S1, +S2 - GI/Abdominal Exam GI & Abdominal Exam: Soft, Normal Bowel Sounds. absent: Distended, Firm, Guarding, Rigid, Tenderness, Organomegaly - Neurological Exam Neurological Exam: Alert, Awake, Oriented x3 - Psychiatric Exam Psychiatric exam: Normal Affect, Normal Mood - Skin Skin Exam: Dry, Intact, Normal Color, Warm Discharge Exam - Head Exam Head Exam: ATRAUMATIC Discharge Plan - Discharge Medications Prescriptions: Lisinopril [Zestril] 5 mg PO DAILY #30 tab - Follow Up Plan Condition: STABLE Disposition: HOME/ ROUTINE Instructions: Lisinopril (By mouth), Heart Healthy Diet (DC), Syncope (DC), Hypertension (DC) Additional Instructions: Patient is to be discharged home per Dr. Espino. Patient is to follow up with his primary care physician within one week of discharge. No physical therapy indicated at this time. If patient begins to feel and new or concerning symptoms , please go to nearest emergency room. New Medications: Lisinopril 5mg PO once daily, disp 30 tabs Referrals: [facility] at [facility] [Outside]
--- NOTE | 2017-10-30 21:41 | CON ---
DATE: 10/30/2017 HISTORY OF PRESENT ILLNESS: At the request of Dr. Espino. This is a 72-year-old homeless male who presents with an ulceration about the fifth digit of the right foot with ascending cellulitis at the center of the ulcers a likelihood of osteomyelitis. The patient has a history of homelessness and uncontrolled diabetes. Suggested at this time the patient would require 4 to 6 weeks of IV antibiotics versus an amputation of the fifth digit. The patient was told he was being thrown out of the hospital today. Recommendations will be forwarded to Dr. Espino. Richard Boateng DPM
== END 2017-10-30 14:24 | disposition home or self-care (01) | DRG 312 ==
LOC: C.ER 15:58 → C.6T 21:33 → C.9E 21:33 → OBSVTOIN 10-27 18:26 → C.6T 10-29 19:44
PROVIDERS: ADMIT Internal Medicine; ATTEND Internal Medicine
DX: R55 Syncope and collapse (principal); E11.621 Type 2 diabetes mellitus with foot ulcer; E11.65 Type 2 diabetes mellitus with hyperglycemia; L03.115 Cellulitis of right lower limb; L97.519 Non-pressure chronic ulcer of other part of right foot with unspecified severity; D64.9 Anemia, unspecified; I10 Essential (primary) hypertension; J44.9 Chronic obstructive pulmonary disease, unspecified; M06.9 Rheumatoid arthritis, unspecified; K21.9 Gastro-esophageal reflux disease without esophagitis; Z59.0 Homelessness; Z87.891 Personal history of nicotine dependence; Z79.4 Long term (current) use of insulin; Z87.01 Personal history of pneumonia (recurrent)

== ENCOUNTER 2017-11-25 21:46 | Emergency (ER) | payer MEDICARE ==
[2017-11-25 21:46] VITALS: BMI 38.4
--- NOTE | 2017-11-25 23:23 | C.PDOC ---
History Of Present Illness Patient brought in due to being homeless and had no place to stay. States he need a place to rest.Denies any pain. Time Seen by Provider: 11/25/17 23:22 Chief Complaint (Nursing): Medical Clearance History Per: Patient History/Exam Limitations: no limitations Current Symptoms Are (Timing): Still Present Severity: None Pain Scale Rating Of: 0 Recent travel outside of the [place]: No Additional History Per: Prior Records Past Medical History Vital Signs: Last Vital Signs Temp 97.8 F 11/26/17 03:36 Pulse 87 11/26/17 03:36 Resp 22 11/26/17 03:36 BP 162/75 H 11/26/17 03:36 Pulse Ox 100 11/26/17 03:36 - Medical History PMH: COPD, Diabetes, Pneumonia (a year ago), Rheumatoid Arthritis Surgical History: Tonsillectomy Family History: States: Unknown Family Hx - Social History Hx Tobacco Use: Yes (former smoker) Hx Alcohol Use: No Hx Substance Use: No - Immunization History Hx Tetanus Toxoid Vaccination: No Hx Influenza Vaccination: No Hx Pneumococcal Vaccination: No Review Of Systems Constitutional: Negative for: Fever, Chills, Sweats Cardiovascular: Negative for: Chest Pain, Palpitations, Orthopnea, Paroxysmal Noc. Dyspnea Respiratory: Negative for: Cough, Shortness of Breath, Hemoptysis Gastrointestinal: Negative for: Nausea, Vomiting, Abdominal Pain, Diarrhea Genitourinary: Negative for: Dysuria, Frequency Musculoskeletal: Negative for: Neck Pain, Shoulder Pain, Arm Pain, Back Pain, Leg Pain Skin: Negative for: Rash, Lesions Neurological: Negative for: Weakness, Numbness, Incoordination, Change in Speech Psych: Negative for: Anxiety, Depression, Psychosis, Suicidal ideation, Withdrawal Physical Exam - Physical Exam Appears: Non-toxic, No Acute Distress Skin: Normal Color, Warm, Dry Head: Atraumatic Eye(s): bilateral: Normal Inspection, PERRL, EOMI Nose: Normal Oral Mucosa: Moist Tongue: Normal Appearing Throat: Normal Neck: Normal Chest: Symmetrical, No Deformity, No Tenderness, No Ecchymosis, No Subcutaneous Emphysema Cardiovascular: Rhythm Regular Respiratory: Normal Breath Sounds Gastrointestinal/Abdominal: Normal Exam Back: Normal Inspection Extremity: Normal ROM Neurological/Psych: Normal Speech, Normal Cognition Gait: Steady Other Neurological Findings: No Facial Palsy ED Course And Treatment O2 Sat by Pulse Oximetry: 97 Disposition - Disposition Disposition: HOME/ ROUTINE Disposition Time: 06:16 Condition: STABLE Instructions: Alcohol Abuse and Alcoholism (DC) Forms: [facility] (South Korean) - POA Present On Arrival: None - Clinical Impression Clinical Impression: Homeless, Alcohol abuse
[2017-11-26 03:37] VITALS: RESP 22
[2017-11-26 06:47] VITALS: BP 145/60; PULSE 86; TEMP 97.5; O2SAT 100
== END 2017-11-26 06:47 | disposition home or self-care (01) ==
LOC: C.ER 21:46
DX: F10.10 Alcohol abuse, uncomplicated (principal); Z59.0 Homelessness; E11.9 Type 2 diabetes mellitus without complications; J44.9 Chronic obstructive pulmonary disease, unspecified; M06.9 Rheumatoid arthritis, unspecified; Z87.891 Personal history of nicotine dependence

== ENCOUNTER 2017-11-27 07:14 | Emergency (ER) | payer MEDICARE ==
[2017-11-27 07:14] VITALS: BMI 38.4
--- NOTE | 2017-11-27 07:40 | C.PDOC ---
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 PS BECAME DIZZY "JUST LIKE LAST TIME", FELL BACKWARDS AND STRUCK BACK OF HEAD. "THERE'S NO SWELLING OR BLEEDING". NO NV. AMBUL W ROLLING WALKER. CO R HIP PAIN. DENIES OTHER ASSOC INJURY OR SX hx of DM and HTN. He is homeless and is a poor historian, offering little scope into his medical history. RECENT ADMISSION @ [facility] THIS YEAR FOR SYNCOPE, "tests" were done there, everything was "normal" and he was discharge. HO INTERMIT SYNCOPAL EPISODES, ADMITTED 10/2017 FOR SAME S/P SYNCOPE MUNOZ CT head done in ED- negative for acute changes UDS negative MALIK's x3- negative Carotid doppler: negative Echo: normal LV EF of 71% with moderate TR Orthostatics: lying 135/79, HR 86, sitting 132/84, HR 82; standing 130/79, HR 86 UCX: negative EKG: NSR EXAM NAD NONTOXIC HEENT +GEN TEND POST SCALP, NO GROSS TRAUMA. NO DEFORM, SWELL SKIN INTACT NECK SUPPLE NONTEND NEURO NO FOCAL TEND CV RRR EXT AROM WO DIFF NONTEND REMAINDER NEG - HPI Time Seen by Provider: 11/27/17 07:38 Chief Complaint (Nursing): Trauma History Per: Patient Injury Occurred (Timing): Just Before Arrival Past Medical History Reviewed: Historical Data, Nursing Documentation, Vital Signs Vital Signs: Last Vital Signs Temp 98.0 F 11/27/17 07:20 Pulse 84 11/27/17 07:20 Resp 20 11/27/17 07:20 BP 177/92 H 11/27/17 07:20 Pulse Ox 99 11/27/17 09:19 - Medical History PMH: COPD, Diabetes, Pneumonia (a year ago), Rheumatoid Arthritis Surgical History: Tonsillectomy Family History: States: No Known Family Hx - Social History Hx Tobacco Use: Yes (former smoker) Hx Alcohol Use: No Hx Substance Use: No - Immunization History Hx Tetanus Toxoid Vaccination: No Hx Influenza Vaccination: No Hx Pneumococcal Vaccination: No Review Of Systems Except As Marked, All Systems Reviewed And Found Negative. Constitutional: Negative for: Fever, Weakness, Malaise Cardiovascular: Negative for: Chest Pain Respiratory: Negative for: Shortness of Breath Gastrointestinal: Negative for: Vomiting, Abdominal Pain, Diarrhea Musculoskeletal: Negative for: Neck Pain, Back Pain Neurological: Positive for: Dizziness. Negative for: Weakness, Numbness Physical Exam - Physical Exam Appears: Non-toxic, No Acute Distress Skin: Normal Color, Warm, Dry, No Rash Head: Normacephalic, Other ( +GEN TEND POST SCALP, NO GROSS TRAUMA. NO DEFORM, SWELL SKIN INTACT) Eye(s): bilateral: PERRL, EOMI Nose: Normal, No Discharge Oral Mucosa: Moist Lips: Normal Appearing Neck: Normal ROM Chest: Symmetrical Cardiovascular: Rhythm Regular, No Murmur Respiratory: Normal Breath Sounds, No Accessory Muscle Use Extremity: Normal ROM, No Deformity, Other (AROM WO DIFF NONTEND) Neurological/Psych: Oriented x3, Normal Speech ED Course And Treatment ECG: Interpreted By Me ECG Rhythm: Sinus Rhythm ECG Interpretation: Normal Rate From EC O2 Sat by Pulse Oximetry: 99 Pulse Ox Interpretation: Normal Progress - Re-Evaluation Re-evaluation Note: 11/27/17 09:55 NEURO INTACT [facility]. NO ACUTE FINDINGS. RECENT EXTENSIVE EVAL FOR SYNCOPE, WELL DOCUMENTED PRIOR VISITS FOR SAME. NOW ASYMPT. - Data Reviewed Data Reviewed: Diagnostic imaging, EKG, Old records Disposition Counseled Patient/Family Regarding: Studies Performed, Diagnosis, Need For Followup - Disposition Referrals: [facility] [Outside] [facility] [Outside] Larry Espino Jr., MD [Medical Doctor] - Disposition: HOME/ ROUTINE Disposition Time: 09:56 Condition: IMPROVED Instructions: Minor Head Injury, Syncope (Fainting) Forms: [facility] (Jamaican) - Clinical Impression Clinical Impression: Minor head injury, Syncope - Scribe Statement The provider has reviewed the documentation as recorded by the Scribe (Shanice Harrell) All medical record entries made by the Scribe were at my direction and personally dictated by me. I have reviewed the chart and agree that the record accurately reflects my personal performance of the history, physical exam, medical decision making, and the department course for this patient. I have also personally directed, reviewed, and agree with the discharge instructions and disposition.
--- NOTE | 2017-11-27 08:38 | RAD ---
PROCEDURE: Right Hip Radiographs. HISTORY: TRAUMA COMPARISON: None. FINDINGS: BONES: Normal. No fracture. JOINTS: Normal. SOFT TISSUES: Normal. OTHER FINDINGS: None. IMPRESSION: Normal radiographs of right hip.
--- NOTE | 2017-11-27 09:38 | CT ---
PROCEDURE: CT HEAD WITHOUT CONTRAST. HISTORY: SYNCOPE COMPARISON: None available. TECHNIQUE: Axial computed tomography images were obtained through the head/brain without intravenous contrast. Radiation dose: Total exam DLP = 1920.48 mGy-cm. This CT exam was performed using one or more of the following dose reduction techniques: Automated exposure control, adjustment of the mA and/or kV according to patient size, and/or use of iterative reconstruction technique. FINDINGS: HEMORRHAGE: No intracranial hemorrhage. BRAIN: No mass effect or edema. Minimal age-appropriate atrophy and minimal periventricular white matter lucency. Multiple small old right basal ganglia lacunar infarcts. VENTRICLES: Unremarkable. No hydrocephalus. CALVARIUM: Unremarkable. PARANASAL SINUSES: Almost complete opacification of both maxillary antra. Minimal chronic ethmoid sinusitis. Non pneumatized frontal sinuses. Sphenoid sinus unremarkable. MASTOID AIR CELLS: Minimal bilateral mastoid effusion common nonspecific. OTHER FINDINGS: None. IMPRESSION: No intracranial mass, hemorrhage or evidence of acute infarct. Small old right basal ganglia lacunar infarcts. Minimal chronic white matter ischemic change. Extensive chronic maxillary sinusitis and nonspecific mastoid effusions.
[2017-11-27 10:35] VITALS: BP 128/47; PULSE 77; RESP 18; TEMP 97.9; O2SAT 95
--- NOTE | 2017-11-29 12:38 | CARD ---
APPROVED REPORT EKG Measurement Heart [id number] <Conclusion> Normal sinus rhythm with sinus arrhythmia Left axis deviation Pulmonary disease pattern Minimal voltage criteria for LVH, may be normal variant Abnormal ECG
== END 2017-11-27 11:15 | disposition home or self-care (01) ==
LOC: C.ER 07:14
DX: S09.90XA Unspecified injury of head, initial encounter (principal); W19.XXXA Unspecified fall, initial encounter; E11.9 Type 2 diabetes mellitus without complications; I10 Essential (primary) hypertension; Z87.891 Personal history of nicotine dependence; Z59.0 Homelessness; M06.9 Rheumatoid arthritis, unspecified

== ENCOUNTER 2017-12-08 06:48 | Emergency (ER) | payer MEDICARE ==
[2017-12-08 06:48] VITALS: BMI 38.4
[2017-12-08 07:02] VITALS: BP 139/88; PULSE 78; RESP 18; TEMP 98.3; O2SAT 98
--- NOTE | 2017-12-08 07:42 | C.PDOC ---
History Of Present Illness 72 year old male is brought to the ED by EMS for visual hallucinations. Upon questioning in the ED patient states he has multiple complaints. Patient first reports he feels dizzy, then states he thinks his hand was a pie. Patient then states he feels cold and the feels warm. Patient was seen at [facility] yesterday for the same thing. Patient was recently admitted to the Hospital for extensive syncope work up. Time Seen by Provider: 12/08/17 07:17 Chief Complaint (Nursing): Psychiatric Evaluation History Per: Patient History/Exam Limitations: no limitations Onset/Duration Of Symptoms: Hrs Current Symptoms Are (Timing): Gone Reports Recently: Seen In ED ([facility] Recent travel outside of the [place]: No Additional History Per: Patient Past Medical History Reviewed: Historical Data, Nursing Documentation, Vital Signs Vital Signs: Last Vital Signs Temp 98.3 F 12/08/17 06:58 Pulse 78 12/08/17 06:58 Resp 18 12/08/17 06:58 BP 139/88 12/08/17 06:58 Pulse Ox 98 12/08/17 07:44 - Medical History PMH: COPD, Diabetes, Pneumonia (a year ago), Rheumatoid Arthritis Surgical History: Tonsillectomy Family History: States: Unknown Family Hx - Social History Hx Tobacco Use: Yes (former smoker) Hx Alcohol Use: No Hx Substance Use: No - Immunization History Hx Tetanus Toxoid Vaccination: No Hx Influenza Vaccination: No Hx Pneumococcal Vaccination: No Review Of Systems Constitutional: Negative for: Fever, Chills Cardiovascular: Negative for: Chest Pain Respiratory: Negative for: Cough, Shortness of Breath Gastrointestinal: Negative for: Vomiting, Abdominal Pain Skin: Negative for: Rash Neurological: Negative for: Weakness, Numbness Psych: Positive for: Psychosis. Negative for: Depression, Suicidal ideation Physical Exam - Physical Exam Appears: Non-toxic, No Acute Distress Skin: Normal Color, Warm, Dry Head: Atraumatic, Normacephalic Eye(s): bilateral: Normal Inspection Nose: No Discharge Oral Mucosa: Moist Neck: Normal ROM, Supple Chest: Symmetrical Cardiovascular: Rhythm Regular, No Murmur Respiratory: Normal Breath Sounds, No Rales, No Rhonchi, No Wheezing Gastrointestinal/Abdominal: Soft, No Tenderness, No Guarding, No Rebound Extremity: Normal ROM, No Tenderness, No Swelling Neurological/Psych: Oriented x3 ED Course And Treatment O2 Sat by Pulse Oximetry: 98 (On RA) Pulse Ox Interpretation: Normal Progress - Re-Evaluation Re-evaluation Note: 12/08/17 07:43 SP EVAL CRISIS, CLEARED FOR OUTPT FU - Data Reviewed Data Reviewed: Old records Disposition Counseled Patient/Family Regarding: Diagnosis, Need For Followup - Disposition Referrals: [facility] [Outside] [facility] at [facility] [Outside] Disposition: HOME/ ROUTINE Disposition Time: 07:43 Condition: GOOD Instructions: Dizziness, Nonvertigo, (DC) Forms: [employer] (Latvian) - Clinical Impression Clinical Impression: Homeless, Dizziness - Scribe Statement The provider has reviewed the documentation as recorded by the Scribe Chandan Marti All medical record entries made by the Scribe were at my direction and personally dictated by me. I have reviewed the chart and agree that the record accurately reflects my personal performance of the history, physical exam, medical decision making, and the department course for this patient. I have also personally directed, reviewed, and agree with the discharge instructions and disposition.
== END 2017-12-08 08:20 | disposition home or self-care (01) ==
LOC: C.ER 06:48
DX: R42 Dizziness and giddiness (principal); Z59.0 Homelessness; M06.9 Rheumatoid arthritis, unspecified; E11.9 Type 2 diabetes mellitus without complications; J44.9 Chronic obstructive pulmonary disease, unspecified; Z87.891 Personal history of nicotine dependence

== ENCOUNTER 2017-12-27 23:18 | Emergency (ER) | payer MEDICARE, MEDICAID ==
[2017-12-27 23:18] VITALS: BMI 38.4
[2017-12-27 23:32] VITALS: BP 168/67; PULSE 83; RESP 16; TEMP 98.3; O2SAT 97
--- NOTE | 2017-12-28 00:34 | C.PDOC ---
History Of Present Illness 72 y/o pt presents to ER by EMS, found sleeping in front of a store, pt now c/o of skin rash to arms and shoulders as per triage however now pt refusing to answer any questions stating " I am cold, want to sleep". Time Seen by Provider: 12/27/17 23:50 Chief Complaint (Nursing): Abnormal Skin Integrity History Per: Patient History/Exam Limitations: no limitations Onset/Duration Of Symptoms: Hrs Current Symptoms Are (Timing): Still Present Additional History Per: Patient Past Medical History Reviewed: Historical Data, Nursing Documentation, Vital Signs Vital Signs: Last Vital Signs Temp 98.3 F 12/27/17 23:23 Pulse 83 12/27/17 23:23 Resp 16 12/27/17 23:23 BP 168/67 H 12/27/17 23:23 Pulse Ox 97 12/28/17 02:45 - Medical History PMH: COPD, Diabetes, Pneumonia (a year ago), Rheumatoid Arthritis (on hands) Surgical History: Tonsillectomy Family History: States: Unknown Family Hx - Social History Hx Tobacco Use: Yes (former smoker) Hx Alcohol Use: No Hx Substance Use: No - Immunization History Hx Tetanus Toxoid Vaccination: No Hx Influenza Vaccination: No Hx Pneumococcal Vaccination: No Review Of Systems Skin: Positive for: Rash (to arms and shoulders ) Physical Exam - Physical Exam Appears: Non-toxic, No Acute Distress Skin: Normal Color, Warm, Dry, No Rash (visible on exposed areas ) Head: Atraumatic, Normacephalic Eye(s): bilateral: Normal Inspection Oral Mucosa: Moist Neck: Supple Extremity: Normal ROM Neurological/Psych: Oriented x3, Normal Speech, Normal Cognition Additional Physical Exam Comments: patient refusing further examination ED Course And Treatment O2 Sat by Pulse Oximetry: 97 (on RA) Pulse Ox Interpretation: Normal Progress Note: Patient is refusing further physical examination, stating he just wants a place to sleep. On reassessment, patient is resting comfortably, showing no signs of distress and is stable for discharge. Disposition Counseled Patient/Family Regarding: Diagnosis, Need For Followup - Disposition Referrals: [facility] at [facility] [Outside] Disposition: HOME/ ROUTINE Disposition Time: 00:33 Condition: STABLE Additional Instructions: Please follow up in clinic Forms: General Discharge Instructions - Clinical Impression Clinical Impression: Dry skin, Encounter for medical assessment - PA / STEEL CHECKER / Resident Statement /DO has reviewed & agrees with the documentation as recorded. - Scribe Statement The provider has reviewed the documentation as recorded by the Scribe (Lyndsay Jacques) All medical record entries made by the Scribe were at my direction and personally dictated by me. I have reviewed the chart and agree that the record accurately reflects my personal performance of the history, physical exam, medical decision making, and the department course for this patient. I have also personally directed, reviewed, and agree with the discharge instructions and disposition.
== END 2017-12-28 00:42 | disposition home or self-care (01) ==
LOC: C.ER 23:18
DX: Z04.8 Encounter for examination and observation for other specified reasons (principal); L85.3 Xerosis cutis